=== PATIENT | female | born 1940 | race Caucasian/White ===

== ENCOUNTER 2019-08-18 10:30 | Outpatient (RCR) | payer MEDICARE, OTHER, SELFPAY ==
--- NOTE | 2019-07-13 17:24 | ST.OPIE ---
Visit Care Team Role Provider Type Walter Duarte MD Primary Care Provider Non-Staff Specialty: Family Practice Address: [address] [place] [address], [address] Email: Wiliam Molina MD Attending Provider Physician Referring Provider Specialty: Ear, Nose, Throat Address: [address] [place] [address], [address] Email: [email or web address] Speech-Language Pathology Initial Evaluation DIRECTOR TALENT Clinical Swallow Evaluation Start: 07/13/19 12:26 Freq: Status: Active Protocol: Document 07/13/19 12:26 VINNY (Rec: 07/13/19 12:50 VINNY [email or web address]) Clinical Swallow Evaluation Session Time Visit Start Time 12:30 Visit Stop Time 13:30 Total Visit Minutes 60 Visit Information Plan of Care Dates 07/13/19-10/04/19 Insurance Information Medicare Referral Referring Physician Dr. Wiliam Molina Reason for Referral Dysphagia Setting Assessment Location Outpatient Care Visit Type Note Type Initial Evaluation Next Note Type Next Note Type Treatment Note Patient Information Identification Type Name,ID Card History This 78-yr-old female, who goes by Gabe, has an extensive medical history including 3 cervical spine surgeries in 1979, 2013, and 2018. The 1979 surgery was successful in relieving the pt 's symptoms. In 2013, a bone spur was discovered on the pt' s cervical spine and surgery was unsuccessful in treating it. By 2018, the spur had grown and posterior cervical surgery was attempted at [facility]. However, during initial prep stages for surgery, the spur punctured the spinal cord resulting in multiple physical complications requiring extensive hospitalization and rehabilitation. Surgical intervention was again attempted in November 2018, but from anterior approach and lasting 4 hours during which time the pt was intubated. She experienced severe swallow difficulties and aspiration pneumonia post surgery, failed 2 MBSS evaluations (silent aspiration), and required PEG tube placement for nutrition and hydration. After a 47-day hospital stay, the pt returned home with Home Health. She received dysphagia treatment from DIRECTOR TALENT Ela Flores and was able to return to oral intake of soft foods and thin liquids . The pt passed an MBSS evaluation in Mar 2019, which noted deep penetration but no aspiration. Residue was noted particularly in left pyriform sinus and was benefited by head turn to left with chin tuck. The pt was cleared for oral consumption, and the PEG tube was removed 2 wks later. She has had no pneumonia since her hospital stay. The pt presents now for outpatient dysphagia therapy in hopes to continue to improve swallow function and safety for a more advanced diet. She experiences sticking of food in her throat, which requires frequent coughing to expel. This makes her uncomfortable eating in public and raises her concerns for possible choking and/or aspiration. PMHx is also significant for depression for which she sees Dr. 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 This successfully stopped the seizures. Subjective Observations The pt arrived on time and provided case history supplemental to medical records. She reported inconsistent use of compensatory strategies and compliance with swallow exercises. She stated she sometimes eats too fast. She requires applesauce to consume pills and has experienced sticking and dissolving of pills in her throat without use of a carrier. She questioned the purpose of swallow exercises and expressed doubt of their benefit. The pt did provide verbal permission for this clinician to speak with her previous Home Health DIRECTOR TALENT, which was done following the evaluation. Evaluation Liquids Trialed Thin Solids Trialed Puree,Dysphagia Mechanical Administration Type Cup Single Sip,Cup Consecutive Sips,Self-Feeding Oral Impairment WFL Oral Strategies Controlled Bite/Sip Size Oral Phase Comments Oral Peripheral Exam: All structures were symmetrical and WNL of strength, coordination and ROM. Hyolaryngeal elevation and excursion appear to be WFL via palpation. Pt has extensive scarring and bulk at anterior neck from surgeries. Suspect internal scar tissue as well that may impact laryngeal movement and possibly airway closure. Oral Phase: WFL. The pt explained that she takes care and time to position boluses at center front of tongue blade and then shift to back of tongue prior to swallow onset to improve bolus control . Swallow trigger appears to be timely. No abnormal oral residue was present. Pharyngeal Impairment Moderately Impaired Pharyngeal Strategies Sitting Upright (90 deg),Turn Head Left,Chin Tuck,Double Swallow,Effortful Swallow, Small Bites and Sips Pharyngeal Phase Comments Without use of compensatory strategies, pt required 3 swallows to clear single cup sip of water. With use of strategies, reduced to 2 swallows. Pt reported sticking sensation with solids, which cleared with subsequent swallow. Findings Dysphagia Type Moderate-Severe Pharyngeal Dysphagia Rehabilitation Potential Good Impressions Based on most recent MBSS reports and today's clinical bedside swallow evaluation, the pt presents with moderate to severe pharyngeal dysphagia characterized by reduced airway closure and pharyngeal residue requiring multiple swallows to clear. The pt benefits from head turn to left with chin tuck. Based on reports from the pt and from her previous DIRECTOR TALENT, the pt has been inconsistent with clinical recommendations and HEP. Outpatient skilled intervention is medically necessary to improve the pt's swallow function and safety in order to advance her diet and reduce risks of aspiration and choking. Recommend therapy target pt education, swallow exercises, compensatory swallow strategies, and ongoing assessment with oral trials. The pt was in agreement with this clinician's instructions to resume swallow exercises and precautions as prescribed. Diet Recommendations Liquids Order Thin Diet Order Dysphagia Mechanical Medication Recommendations Whole in Carrier Additional Dietary Needs Single Sips Aspiration Precautions Recommended Precautions Upright at 90 Degrees,Small Bites/Sips,Chin Tuck,Effortful Swallow,Double Swallow,Left Head Turn Treatment Plan Placement Recommendations after Home Discharge Appropriate for Therapy Yes Therapy Recommendations Pt education, swallow exercises, compensatory swallow strategies, and ongoing assessment with oral trials. Dysphagia Goals To reduce risk of aspiration, advance diet, and increase pt comfort and confidence with oral consumption, the pt will: 1. Independently perform exercises to improve strength, coordination, and ROM of swallow musculature; 2. Independently use compensatory swallow strategies in 90% of opportunities; 3. Comply with general aspiration precautions in 90% of opportunities. 4. The pt will tolerate mechanical soft textures and thin liquids without overt s/ sx of aspiration. DIRECTOR TALENT Follow Up 1x/wk for 8 wks
--- NOTE | 2019-07-26 11:30 | ST.IPDYTX ---
Visit Care Team Role Provider Type Walter Duarte MD Primary Care Provider Non-Staff Specialty: [facility] Address: [address] [place] [address], [address] Email: Wiliam Molina MD Attending Provider Physician Referring Provider Specialty: Ear, Nose, Throat Address: [address] [place] [address], [address] Email: [email or web address] MILL OPERATOR Dysphagia Treatment FORMING MILL OPERATOR Dysphagia Treatment Start: 07/26/19 10:26 Freq: Status: Active Protocol: Document 07/26/19 10:26 VINNY (Rec: 07/26/19 10:27 VINNY [email or web address]) Dysphagia Treatment Session Time Visit Start Time 09:45 Visit Stop Time 10:20 Total Visit Minutes 35 Visit Information Visit Number 06/11 Plan of Care Dates 07/13/19-10/04/19 Insurance Information Medicare Setting Assessment Location Outpatient Care Visit Type Note Type Treatment Note Next Note Type Next Note Type Treatment Note Patient Information Identification Type Name,ID Card Subjective Observations Pt arrived 15 min late, stating she got turned around coming to the clinic. She was apologetic. Medical records received including MBS and dysphagia treatment reports. Treatment Treatment Activities Reviewed past medical records with pt. Some confusion appears within 03/23/19 MBS report whether pt aspriated or not. This FORMING MILL OPERATOR will consult documentation further. Educated pt on purpose of compensatory strategy of head turn to left with chin tuck. Information provided orally and with diagram. Pt verbalized understanding. Initiated training of swallow exercises including laryngeal elevation and tongue base strengthening. CTAR is held pending results of recent CT scan to ensure exercise is not contraindicated d/t cervical spine surgery and hardware. Pt returned demonstration of all exercises and verbalized agreement. All questions were answered. Assessment Patient Response to Treatment Good Rehab Potential Fair Assessment of Improvement Pt demonstrated good understanding of all information provided and was able to perform all exercises. She inquired whether additional MBS will be ordered . Recommend completion of HEP for 6-8 wks prior to f/u MBS. Pt in understanding and agreement. Diet Recommendations Recommendations Continue Current Diet Liquids Order Thin Diet Order Dysphagia Mechanical Medication Recommendations Whole in Carrier Additional Dietary Needs Chopped Food Aspiration Precautions Recommended Precautions Upright at 90 Degrees,Small Bites/Sips,Chin Tuck,Effortful Swallow,Double Swallow,Left Head Turn Treatment Plan Placement Recommendation after Discharge Home Appropriate for Continued Therapy Yes Therapy Recommendations Pt education, swallow exercises, compensatory swallow strategies, and ongoing assessment with oral trials. Dysphagia Goals To reduce risk of aspiration, advance diet, and increase pt comfort and confidence with oral consumption, the pt will: 1. Independently perform exercises to improve strength, coordination, and ROM of swallow musculature; 2. Independently use compensatory swallow strategies in 90% of opportunities; 3. Comply with general aspiration precautions in 90% of opportunities. 4. The pt will tolerate mechanical soft textures and thin liquids without overt s/ sx of aspiration. Follow Up Plan F/U MBSS after course of treatment
--- NOTE | 2019-08-09 16:24 | ST.IPDYTX ---
Visit Care Team Role Provider Type Walter Duarte MD Primary Care Provider Non-Staff Specialty: Family Practice Address: [address] [place], [address] Email: Wiliam Molina MD Attending Provider Physician Referring Provider Specialty: Ear, Nose, Throat Address: [address] [place] [address], [address] Email: [email or web address] Dysphagia Treatment SERVICE CLERK Dysphagia Treatment Start: 07/26/19 10:26 Freq: Status: Active Protocol: Document 08/09/19 16:22 VINNY (Rec: 08/09/19 16:24 VINNY [email or web address]) Dysphagia Treatment Visit Information Plan of Care Dates 07/13/19-10/04/19 Insurance Information Medicare Setting Assessment Location Outpatient Care Patient Information Subjective Observations Pt did not show for her appt today. SERVICE CLERK spoke to her by phone. She had it in calendar for tomorrow but is also ill today so would not have been able to attend. She did receive IH reminder phone call , which went to and pt did not listen to it. She apologized. Informed her of next scheduled appt and encouraged her to call to cancel if she was still not feeling well. Pt agreed. Treatment Plan Placement Recommendation after Discharge Home Appropriate for Continued Therapy Yes Therapy Recommendations Pt education, swallow exercises, compensatory swallow strategies, and ongoing assessment with oral trials.
--- NOTE | 2019-08-18 14:59 | ST.IPDYTX ---
Visit Care Team Role Provider Type Walter Duarte MD Primary Care Provider Non-Staff Specialty: Family Practice Address: [address] [place] [address], [address] Email: Wiliam Molina MD Attending Provider Physician Referring Provider Specialty: Ear, Nose, Throat Address: [address] [place] [address], [address] Email: [email or web address] Dysphagia Treatment HAND POTTER Dysphagia Treatment Start: 07/26/19 10:26 Freq: Status: Active Protocol: Document 08/18/19 14:31 VINNY (Rec: 08/18/19 14:58 VINNY [email or web address]) Dysphagia Treatment Session Time Visit Start Time 10:30 Visit Stop Time 11:15 Total Visit Minutes 45 Visit Information Visit Number 07/12 Plan of Care Dates 07/13/19-10/04/19 Insurance Information Medicare Setting Assessment Location Outpatient Care Visit Type Note Type Treatment Note Next Note Type Next Note Type Treatment Note Patient Information Identification Type Name,ID Card Subjective Observations Pt arrived on time. Reported moderate compliance with HEP and improvement in swallow ability and safety. I don't feel at all unsafe eating. She reported near absence of coughing with intake but continues with pharyngeal residue, which she manages with hard cough at end of meals to expel. This is successful. Pt also reported having has respiratory congestion last week. She was evaluated by her MD, who diagnosed sinus infection and not COVID-19 or pneumonia. Treatment Liquids Trialed Thin Solids Trialed Puree,Regular Administration Type Cup Single Sip,Cup Consecutive Sips,Self-Feeding Oral Strategies Controlled Bite/Sip Size Pharyngeal Strategies Sitting Upright (90 deg), Effortful Swallow,Small Bites and Sips Treatment Activities Pt reported HEP routine and current symptoms. Skilled education and feedback provided. Education also provided RE sypmtoms of COVID- 19 vs pnuemonia as related to aspiration. The pt was strongly encouraged to seek medical evaluation if she developed cough, cold, SOB, and/or fever and to request chest x-ray as part of differential diagnoses and evaluation of possible development of aspiration pneumonia. She agreed to this. Discussed POC in response to current COVID-19 guidelines per CDC, state, local and hospital policies. Agreed to hold therapy for now for pt safety, as well as safety of the general public, and to follow up again as soon as is safe. Modified HEP tasks to include Tatianna maneuver. Pt was familiar with exercise from previous therapy. Education on purpose/goal of exercise provided with oral and animated video information and demonstration. Pt returned demonstration with good form and verbalized understanding. Oral Trials: Pudding, dry getachew cracker, thin liquid from cup in single and consecutive sips. Oral Phase: WNL. Pt demonstrated appropriate bite/ sip sizes and mastication. Pharyngeal Phase: No overt s/ sx of aspiration observed. Pt maintained clear voice throughout. At end of trials, pt instructed to cough hard into tissue, which she did and produced residue of getachew cracker, indicating pharyngeal residue that does not fully clear during oral intake. Pt instructed to continue with current diet and aspiration precautions, including liquid wash after solids and hard cough at end of intake to manage pharyngeal residue. Pt instructed to continue with HEP, increasing consistency to daily practice as able in balance with other life tasks and medical conditions. Assessment Patient Response to Treatment Good Rehab Potential Fair Assessment of Improvement Pt appears to be doing well with airway protection with oral intake and is maintaining an oral diet without weight loss. She continues with greater than normal pharyngeal residue with intake of solids , which she is able to expel with cough at the end of meals /snacks. Anticipate this will improve as the pt becomes more consistent with HEP. Tatianna maneuver was added to HEP tasks and importance of tongue base exercises was stressed to address pharyngeal residue. The pt verbalized understanding and an intention to increase daily compliance with all prescribed exercises. We discussed the importance of balance between exercise and other aspects of life, including mental health. I appreciate the pt's statements that exercises sometimes act as frequent reminders of deficits, which can add to depression. The pt was receptive to encouragement of reframing thoughts to consider exercise as an opportunity to assert control of the condition and improve it for better quality of life. Diet Recommendations Recommendations Continue Current Diet Liquids Order Thin Diet Order Dysphagia Mechanical Medication Recommendations Whole in Carrier Additional Dietary Needs Chopped Food Aspiration Precautions Recommended Precautions Upright at 90 Degrees,Small Bites/Sips,Chin Tuck,Effortful Swallow,Double Swallow,Left Head Turn Treatment Plan Placement Recommendation after Discharge Home Appropriate for Continued Therapy Yes: Resume after COVID-19 outbreak resolved Therapy Recommendations Pt education, swallow exercises, compensatory swallow strategies, and ongoing assessment with oral trials. Dysphagia Goals To reduce risk of aspiration, advance diet, and increase pt comfort and confidence with oral consumption, the pt will: 1. Independently perform exercises to improve strength, coordination, and ROM of swallow musculature; 2. Independently use compensatory swallow strategies in 90% of opportunities; 3. Comply with general aspiration precautions in 90% of opportunities. 4. The pt will tolerate mechanical soft textures and thin liquids without overt s/ sx of aspiration. Follow Up Plan Hold per COVID-19 protocol; Cont HEP; F/U MBSS after course of treatment
--- NOTE | 2019-12-08 08:56 | ST.IPDYTX ---
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 Treatment suspended d/t COVID- 19 crisis. Pt declined resumption of therapy upon clinic reopening, stating she was not comfortable d/t ongoing COVID-19 risks and agreed to discharge at this time. She understood that new MD orders would be required for future therapy, if needed or desired. Diet Recommendations Liquids Order Thin Diet Order Dysphagia Mechanical Medication Recommendations Whole in Carrier Additional Dietary Needs Chopped Food Aspiration Precautions Recommended Precautions Upright at 90 Degrees,Small Bites/Sips,Chin Tuck,Effortful Swallow,Double Swallow,Left Head Turn Treatment Plan Placement Recommendation after Discharge Home Therapy Recommendations Pt education, swallow exercises, compensatory swallow strategies, and ongoing assessment with oral trials. Dysphagia Goals To reduce risk of aspiration, advance diet, and increase pt comfort and confidence with oral consumption, the pt will: 1. Independently perform exercises to improve strength, coordination, and ROM of swallow musculature; 2. Independently use compensatory swallow strategies in 90% of opportunities; 3. Comply with general aspiration precautions in 90% of opportunities. 4. The pt will tolerate mechanical soft textures and thin liquids without overt s/ sx of aspiration.
== END 2019-12-10 08:15 ==
LOC: SP 10:30
PROVIDERS: PCP Family Medicine; Referring Provider Otolaryngology; Visit Provider Otolaryngology
DX: R13.19 Other dysphagia (principal)
CPT/HCPCS: 92526; 92610

== ENCOUNTER 2020-04-17 12:17 | Outpatient (RCR) | payer MEDICARE, OTHER, SELFPAY ==
--- NOTE | 2020-04-17 16:38 | ST.OPIE ---
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 Wiliam Molina Reason for Referral Dysphagia Setting Assessment Location Outpatient Care Visit Type Note Type Initial evaluation Next Note Type Next Note Type Treatment Note Patient Information Identification Type Name,ID Card History The pt is a 79-yr-old female who goes by Gabe and is familiar to this clinician from dysphagia therapy provided earlier in the year. That course of therapy was discontinued d/t COVID-19 pandemic risks. The pt returns today with ongoing complaints of foods and liquids sticking in her throat. The pt has a history of cervical spinal stenosis s/p C4 corpectomy, C3 -C5 cage plate resection in 2019. Following this procedure, she experienced severe dysphagia requiring tube feeding. Dysphagia therapy was provided, and MBSS administered 03/23/19 revealed no oral and mild-moderate pharyngeal dysphagia characterized by minimal epiglottic retroflexion, partial closure of laryngeal vestibule and impaired midpharyngeal peristalsis, which results in mild-moderate pharyngeal residue of solids and liquids. No aspiration observed, with one instance of very mild laryngeal penetration with thin liquids originating from pharyngeal residue. Able to clear penetrated liquid with throat clear and extra dry swallow. The pt reported that head turn to the left with chin tuck was originally helpful but no longer so. 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 She also has a hx of depression and is under the care of Dr. Dayday Medellin. Subjective Observations The pt arrived on time and provided updated case history, included above. Objective Assessment Mental Status Alert,Responsive,Cooperative Oral Integrity WFL,Excessive saliva/Drooling Dentition Within normal limits,Dentures or partials present,Adequate denture or partial fitting Lip Function Within normal limits Observation of Lips at Rest Right sided weakness/Drooping Pucker Within normal limits Lip Retraction Within normal limits Alternating Pucker/Lip Retraction Within normal limits Tongue Function Within normal limits Observations of Tongue at Rest Within normal limits Tongue Protrusion Within normal limits Tongue Retraction Within normal limits Tongue Lateralization Within normal limits Jaw Function Within normal limits Observations of Jaw at Rest Within normal limits Jaw Opening Within normal limits Jaw Closing Within normal limits Jaw Lateralization Within normal limits Jaw Protrusion Within normal limits Jaw Retraction Within normal limits Hard/Soft Palate Function Within normal limits Observations of Hard/Soft Palate Within normal limits Nasality Within normal limits Phonation Within normal limits Respiratory Sufficiency Within normal limits Comment The pt reported occasional mild saliva buildup with occ drooling at right corner of mouth; buildup was visible to the clinician. Minimal right side weakness/droop observed at right corner of mouth and eyelid. Food and Liquid Trials Position During Assessment Upright (90 degrees) Liquids Trialed Thin Solids Trialed Puree,Mechanical Soft Administration Type Cup consecutive sips,Straw, Self-feeding Oral Impairment Within normal limits Pharyngeal Impairment Moderately impaired Pharyngeal Phase Comments No overt s/sx of aspiration were observed with all trials. The pt c/o sticking sensation with all trials including liquids and solids. During consumption of diced peaches, the pt swallowed once, coughed up food particles, repeated that pattern, and swallowed completely on third attempt. She stated that this was her normal process when eating solids that required mastication. Fatigue/Endurance Endurance WNL Strategies Attempted Chin tuck,Head rotation, Effortful swallow Response/Comments No positive effect from strategies. Findings Swallowing Function Pharyngeal phase dysphgia Severity of Swallow Impairment Mildly-moderately impaired Contributing Factors to Swallow Excessive pharyngeal residue Impairment Prognosis Fair Based on Duration of symptoms/severity, Other (comment) Comment Suspect presence of cervical spine cage impacts pharyngeal clearance with possible interference of epiglottic inversion. If so, prognosis is poor. However, if cage does not interfere, prognosis is good and improvement is expected with exercise to improve muscular function. Instrumental evaluation is required for more complete assessment. Impact on Safety and Functioning Risk for aspiration Recommendations Instrumental Assessment Yes Swallowing Treatment Yes Frequency 6x Duration over 2-3 mos Recommended Solids Chopped Recommended Liquids Thin Safety Precautions/Swallowing Reduce distractions,Remain Recommendations upright (90 degrees) during all oral intake,Upright position at least 30 minutes after meals,Small bites and sips when eating,Slow rate; swallow between bites,Multiple swallows,Alternate liquids and solids Medication Recommendations Crushed in Carrier Discharge Recommendations Home,Outpatient therapy Education Patient/Caregiver Education Described results of evaluation,Patient expressed understanding of evaluation, Patient expressed agreement with goals & treatment plans, Patient expressed understanding of safety precautions,Patient expressed understanding of feeding recommendations Goals Short-term Goals 1. The pt will participate in MBSS for further evaluation of swallow function/safety and to guide POC. 2. The pt will employ safe swallow strategies to reduce risk of aspiration. 3. The pt will perform swallow exercises, if deemed appropriate after MBSS, to improve swallow efficiency and comfort with oral intake. Long-term Goals 1. The pt will tolerate least restrictive diet to meet her nutrition and hydration needs.
--- NOTE | 2020-10-04 16:03 | ST.OPDS ---
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 That course of therapy was discontinued d/t COVID-19 pandemic risks. The pt returns today with ongoing complaints of foods and liquids sticking in her throat . The pt has a history of cervical spinal stenosis s/p C4 corpectomy, C3-C5 cage plate resection in 2019. Following this procedure, she experienced severe dysphagia requiring tube feeding. Dysphagia therapy was provided , and MBSS administered revealed no oal and mild- moderate pharyngeal dysphagia characterized by minimal epiglottic retroflexion, partial closure of laryngeal vestibule and impaired midpharyngeal peristalsis, which results in mild-moderate pharyngeal residue of solids and liquids. No aspiration observed, with one instance of very mild laryngeal penetration with thin liquids originating from pharyngeal residue. Able to clear penetrated liquid with throat clear and extra dry swallow. The pt reported that head turn to the left with chin tuck was originally helpful but no longer so. 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 She also has a hx of depression and is under the care of Dr. Dayday Medellin. Subjective Observations/Patient Presentation The pt was last seen in outpatient clinic on 04/17/20. Since then, she was seen for MBSS on 09/13/20. New orders for dysphagia treatment were received from PCP. This course of treatment is discharged at this time in order to open a new course and POC. Chief Complaint(s) Swallowing Objective Short Term Goals 1. The pt will participate in MBSS for further evaluation of swallow function/safety and to guide POC. 2. The pt will employ safe swallow strategies to reduce risk of aspiration. 3. The pt will perform swallow exercises, if deemed appropriate after MBSS, to improve swallow efficiency and comfort with oral intake. Fdc Goals 1. The pt will tolerate least restrictive diet to meet her nutrition and hydration needs. Assessment Rehab Potential Fair Plan Therapy Recommendations Discharge from Speech Therapy Comment New course of treatment to be initiated under new orders.
== END 2020-10-05 08:51 | disposition home or self-care (01) ==
LOC: SP 12:17
PROVIDERS: PCP Internal Medicine; Referring Provider Otolaryngology; Visit Provider Otolaryngology
DX: R13.10 Dysphagia, unspecified (principal)
CPT/HCPCS: 92610

== ENCOUNTER → 2020-09-13 12:53 | Outpatient (CLI) | payer MEDICARE, OTHER, SELFPAY ==
--- NOTE | 2020-09-13 | DI.RAD.S_ITS ---
PROCEDURE: FL BARIUM SWALLOW W SPEECH INDICATIONS: Dysphagia, unspecified COMPARISON: None. TECHNIQUE: Examination was conducted in conjunction with speech pathology per standard protocol. In the lateral projection, filming was performed of the patient swallowing. AP projection filming may also be performed with patient swallowing. COMPARISON: FINDINGS: Function: The oral preparatory phase appears normal, with proper containment. The subsequent oral propulsive phase, pharyngeal phase, and esophageal phase of swallowing also appear normal with all proffered substances. No laryngotracheal penetration or aspiration. Pathologic pooling of all proffered substances noted in the vallecula and right piriform sinus. Patient is unable to swallow a 13 millimeter barium pill sequestration in the vallecula. Morphology: No cricopharyngeal bar is identified. No cervical esophageal webs. No Zenker's diverticulum. No strictures. Postsurgical changes compatible with C5 ACDF. Degenerative disc changes with anterior endplate osteophytosis at the C7-T1 level causes contouring of the posterior margin of the cervical esophagus. 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 Dictated by: Trinity Srivastava MD, PhD on 09/13/2020 at 16:54 Approved by: Trinity Srivastava MD, PhD on 09/13/2020 at 16:58
--- NOTE | 2020-09-13 17:10 | ST.SWALLOW ---
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 Guillaume Cortés Reason for Referral Dysphagia Setting Setting Outpatient Care Patient Information Patient History The pt is a 79-yr-old female who goes by Gabe and is familiar to this clinician from prior outpatient dysphagia therapy, which was discontinued d/t COVID-19 pandemic risks. The pt returns today with ongoing complaints of foods and liquids sticking in her throat. The pt has a history of cervical spinal stenosis s/p C4 corpectomy, C3 -C5 cage plate resection in 2019. Following this procedure , she experienced severe dysphagia requiring tube feeding. Dysphagia therapy was provided, and MBSS administered 03/23/19 revealed no oral and mild-moderate pharyngeal dysphagia characterized by minimal epiglottic retroflexion, partial closure of laryngeal vestibule and impaired midpharyngeal peristalsis, which results in mild-moderate pharyngeal residue of solids and liquids. No aspiration observed, with one instance of very mild laryngeal penetration with thin liquids originating from pharyngeal residue. Able to clear penetrated liquid with throat clear and extra dry swallow. The pt reported that head turn to the left with chin tuck was originally helpful but no longer so. 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 She also has a hx of depression and is under the care of Dr. Dayday Medellin. Subjective Observations The pt arrived on time and provided updated case history. Patient Positioning Position View A/P Imaging Lateral View Textures Administered Trials Presented Thin Liquid via Spoon,Thin Liquid via Cup,[place]ural [place]reat Liquid via Spoon,Rural [place]reat Liquid via Cup,Honey Liquid via Spoon, Dysphagia Blenderized Textures ,Regular Textures Oral Phase Source: MBSIMP (TM) (C) Bolus Specific Scoring Grid Nasal Regurgitation No Pharyngeal Phase Source: MBSIMP (TM) (C) Bolus Specific Scoring Grid Delayed Initiation of Pharyngeal Swallow No Soft Palate Elevation No Impairment (WNL) Tongue Base Strength/Range of Motion No Impairment (WNL) Residue Along the Tongue Base Yes Clearance of Residue Along Tongue Base WFL Laryngeal Elevation No Impairment (WNL) Anterior Hyoid Movement No Impairment (WNL) Epiglottic Range of Motion Moderate Impairment Vallecular Residue Yes Clearance of Vallecular Residue Severe Impairment Laryngeal Vestibular Closure Mild Impairment Pharyngeal Stripping Wave Moderate Impairment Posterior Pharyngeal Wall Residue Yes Clearance of Posterior Pharyngeal Wall Moderate Impairment Residue Upper Esophageal Sphincter Opening Severe Impairment Residue in the Pyriform Sinuses Yes Clearance of Residue in the Pyriform Severe Impairment Sinuses Pharyngoesophageal Backflow Observed No Additional Pharyngeal Phase Observations The presence of a cervical cage (C3-C5) prevents complete epiglottic inversion ( horizontal at best) and limits extension and duration of UES opening, resulting in significant residue in vallecula and pyriform sinuses , which does not clear despite multiple swallows by the pt. This is further complicated by degenerative disc changes with anterior endplate osteophytosis at the C7-T1 level [which] causes contouring of the posterior margin of the cervical esophagus (see Radiologist report) and slows bolus flow through UES and proximal esophagus. No complete bolus or residue clearance was observed throughout the study. Increased bolus bulk (i.e., pudding and cookie) inconsistently assisted in clearance of pyriform sinuses; however, bulk increased residue at vallecula, prompting the pt to return the bolus from vallecula to oral cavity and reswallow until residue was minimal. Flash penetration (PAS 2) of pharyngeal residue was noted x2 following intake of thin liquid. No aspiration was observed. A/P View Textures Administered Trials Presented Barium Tablet A/P View Observations Pharyngeal Contraction Mild Impairment Residue Observed Pyriform Sinus Right Additional Observations Pt unable to pass barium tablet beyond vallecula, requiring oral expulsion. Pyriform sinus residue greater at right side than left. Clinical Impressions Dysphagia Type Moderate-severe pharyngeal dysphagia Findings The pt presents with moderate- severe pharyngeal dysphagia secondary to presence of cervical cage (C3-C5) which prevents complete epiglottic inversion and restricts extension and duration of UES opening, resulting in significant pharyngeal residue , particularly at vallecula and right pyriform sinus, and increasing the pt's risk of aspiration. Additionally, anterior endplate osteophytosis at the C7-T1 level causes contouring of the posterior margin of the cervical esophagus and further reducing bolus flow and contributing to pharyngeal residue. Reduced contraction of pharyngeal constrictors is present around the cage; otherwise, movement of all other pharyngeal structures appear to be WFL, including airway protection, but limited by cage interference. Therefore, dysphagia therapy is not likely to yield extensive benefit. Recommend the pt be seen by Developing Machine Operator (Dr. Roper at [facility], recommended) for assessment of pharyngoesophageal function and treatment as indicated to improve bolus flow through UES and proximal esophagus. Rehabilitation Potential Fair Patient Appropriate for Therapy Pending assessment/treatment of UES Recommendations Diet Liquids Order Thin Diet Order Regular Medication Recommendation Crushed in Carrier Additional Dietary Needs Chopped Food Aspiration Precautions Recommended Precautions Upright at 90 Degrees, Alternate Liquids/Solids,Small Bites/Sips Treatment Plan Therapy Recommendations Other Additional Therapy Recommendations MBS f/u x1; Dysphagia tx may be warranted after ENT/GI treatment Recommended Referrals ENT Consult Additional Recommended Referrals UES dilation? Recommend Dr. Roper at [facility]. Compensatory Strategies Recommendations Sitting Upright (90 deg), Double Swallow,Small Bites and Sips,Alternate Liquids/Solids Additional Compensatory Strategies Small bites/sips, solids Recommended chewed very well and followed by liquid Short Term Goals Pt to follow up with AUTO CLEANER x1 for review of MBS results and discussion of recommendations. Associate Civil Engineer Goals Pt will tolerate least restrictive diet to meet nutrition and hydration needs.
== END ==
PROVIDERS: PCP Internal Medicine; Referring Provider Internal Medicine; Visit Provider Internal Medicine
DX: R13.10 Dysphagia, unspecified (principal)
CPT/HCPCS: 74230; 92611

== ENCOUNTER 2020-11-28 10:30 | Outpatient (RCR) | payer MEDICARE, OTHER, SELFPAY ==
--- NOTE | 2020-10-04 16:41 | ST.OPIE ---
Visit Care Team Role Provider Type Guillaume Cortés MD Attending Provider Non-Staff Primary Care Provider Referring Provider Specialty: Internal Medicine Address: [address] [place] [address] [address], [place], [address] Email: Speech-Language Pathology Initial Evaluation CONTENT DIRECTOR Clinical Swallow Evaluation Start: 10/04/20 15:54 Freq: Status: Active Protocol: Document 10/04/20 15:54 VINNY (Rec: 10/04/20 16:36 VINNY [email or web address]) Clinical Swallow Evaluation Session Time Visit Start Time 10:30 Visit Stop Time 11:30 Total Visit Minutes 60 Visit Information Visit Number Initial Evaluation Plan of Care Dates 10/04/20 - 01/04/21 Insurance Information Medicare Referral Referring Provider Dr. Guillaume Cortés Reason for Referral Pharyngeal Dysphagia Setting Assessment Location Outpatient Care Visit Type Note Type Initial evaluation Next Note Type Next Note Type Treatment Note Patient Information History The pt is a 80-yr-old female who goes by Gabe and is familiar to this clinician from previous dysphagia therapy provided last year. The pt has a history of cervical spinal stenosis s/p C4 corpectomy, C3-C5 cage plate resection in 2019. Following this procedure, she experienced severe dysphagia requiring tube feeding. Dysphagia therapy was provided , and MBSS administered revealed no oral and mild- moderate pharyngeal dysphagia characterized by minimal epiglottic retroflexion, partial closure of laryngeal vestibule and impaired midpharyngeal peristalsis, which results in mild-moderate pharyngeal residue of solids and liquids. No aspiration observed, with one instance of very mild laryngeal penetration with thin liquids originating from pharyngeal residue. Able to clear penetrated liquid with throat clear and extra dry swallow. The pt reported that head turn to the left with chin tuck was originally helpful but no longer so. On 09/13/20, the pt underwent MBSS with this CONTENT DIRECTOR. The study revealed moderate-severe pharyngeal dysphagia secondary to presence of a cervical cage (C3-C%) which prevents complete epiglottic inversion and restricts distension and duration of UES opening. This results in significant pharyngeal residue, particularly at the right pyriform sinus and to a lesser degree at the vallecula. Additionally, an osteophyte at C7-T1 presented additional constriction below UES, trapping trace amounts of contrast and impeding bolus flow. It was recommended the pt consult with Dr. Roper at for assessment and possible treatment of UES opening. The pt is scheduled to see Dr. Roper on 10/23/20. 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 She also has a hx of depression and is under the care of Dr. Dayday Medellin. Subjective Observations The pt arrived on time. No new complaints regarding swallowing. She was recently seen by Urology and recommended a very strict diet to reduce acidity of urine. The pt was unhappy about this as this further limits an already very strict diet d/t dysphagia symptoms. She informed she will be seen by Dr. Roper on 10/[address] Bibiana Roper has received a copy of the MBS video, but not CONTENT DIRECTOR' s written report. CONTENT DIRECTOR's and Radiologist's reports were faxed to Dr. Roper at the end of the session. Objective Assessment Mental Status Alert,Responsive,Cooperative Food and Liquid Trials Oral Phase Comments WNL Pharyngeal Phase Comments Moderate-Severe Impairment based on recent MBSS findings. Fatigue/Endurance Mild fatigue Comment No oral trials were administered during today's session. Clinical evaluation is based on MBSS findings. These findings, as well as the MBSS video, were reviewed with the pt. Discussed what to expect at the pt's appt with Dr. Roper. Pt was educated on possible treatments including Botox injection to UES to assist with pharyngeal clearance. 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 Questions were answered to the best of the clinician's ability. Recommended the pt discuss these concerns with Dr. Roper , including possible impact of UES treatment, if provided, on GERD symptoms. The pt was also educated on potential targets and limitations of dysphagia therapy. She expressed a desire for exercises to attempt to improve performance of pharyngeal and laryngeal musculature. CONTENT DIRECTOR is agreeable to this and trained pt in [place], CTAR, tongue base strengthening, and Marlon exercises. Pt performed as directed. She was instructed to discontinue CTAR exercises if it exacerbates right side facial, jaw or neck pain. Pt verbalized understanding and agreement. All instructions were provided in writing for home practice. Agreed to f/u after the pt's appt with Dr. Roper. Findings Swallowing Function Pharyngeal phase dysphagia Severity of Swallow Impairment Moderately-severely impaired Contributing Factors to Swallow Reduced laryngeal excursion, Impairment Impaired airway protection, Excessive pharyngeal residue Prognosis Fair Based on Cognitive status,History of aspiration/aspiration pneumonia,Comorbidities, Duration of symptoms/severity Impact on Safety and Functioning Risk for aspiration,Risk for inadequate nutrition/hydration Recommendations Instrumental Assessment No Swallowing Treatment Yes Frequency up to 8 visits Duration over 3 months Recommended Solids Chopped Recommended Liquids Thin Safety Precautions/Swallowing Reduce distractions,Remain Recommendations upright (90 degrees) during all oral intake,Upright position at least 30 minutes after meals,Small bites and sips when eating,Slow rate; swallow between bites,Multiple swallows Medication Recommendations Crushed in Carrier Education Patient/Caregiver Education Described results of evaluation,Patient expressed understanding of evaluation, Patient expressed agreement with goals & treatment plans, Patient expressed understanding of safety precautions,Patient expressed understanding of feeding recommendations,Patient requires further education/ training Goals Short-term Goals 1. The pt will complete exercises to increase strength , coordination and ROM of pharyngeal and laryngeal musculature to reduce pharyngeal residue and risk of aspiration. 2. The pt will follow safe swallow strategies independently to reduce risk of aspiration and promote adequate nutrition and hydration. Long-term Goals 1. The pt will tolerate least restrictive diet to meet her nutrition and hydration needs.
--- NOTE | 2020-10-25 16:58 | ST.IPDYTX ---
Visit Care Team Role Provider Type Guillaume Cortés MD Attending Provider Non-Staff Primary Care Provider Referring Provider Specialty: Internal Medicine Address: [facility] [address], [place], [address] Email: COMPUTER EQUIPMENT REPAIRER Dysphagia Treatment COMPUTER EQUIPMENT REPAIRER Dysphagia Treatment Start: 10/04/20 15:54 Freq: Status: Active Protocol: Document 10/25/20 13:37 VINNY (Rec: 10/25/20 14:29 VINNY [email or web address]) Dysphagia Treatment Session Time Visit Start Time 13:30 Visit Stop Time 14:15 Total Visit Minutes 45 Visit Information Visit Number 1 Plan of Care Dates 10/04/20 - 01/04/21 Insurance Information Medicare Setting Assessment Location Outpatient Care Visit Type Note Type Treatment Note Next Note Type Next Note Type Treatment Note Patient Information Subjective Observations Pt arrived on time. COMPUTER EQUIPMENT REPAIRER student present throughout session with pt's verbal permission. Pt saw Dr. Roper 2 days ago ( 10/23) and underwent laryngeal /pharyngeal scoping, possibly laryngoscopy, videostroboscopy and/or FEES. COMPUTER EQUIPMENT REPAIRER's understanding of the pt's report of this visit is that Dr. Roper thinks coughing is from irritation of food pooling in right pyriform sinus vs airway intrusion. He recommends manometry assessment of esophageal peristalsis for baseline (48 hrs reading) and to determine if Botox injections to UES and R) VF are viable treatment options. If Botox tx is not helpful, may consider cricopharyngeal myotomy. Dr. Roper recommended the pt to take 25 mg Lyrica to reduce pharyngeal aggravation. The pt had questions regarding these recommendations. Treatment Treatment Activities Addressed pt's extensive questions and provided detailed education regarding purposes and processes of Dr. Roper's recommendations in light of pt's current swallow function to assist the pt in making an informed decision. Assessment Patient Response to Treatment Good Rehab Potential Fair Assessment of Improvement Pt was initially undecided and asked COMPUTER EQUIPMENT REPAIRER, Am I overreacting to this and should just get over it and accept the way things are? I don't want to go through more procedures if they are not going to make things better. COMPUTER EQUIPMENT REPAIRER assured pt she was not overreacting. Informed that recommended procedures were necessary to determine the potential for benefit of more permanent treatment options. After education, the pt reported feeling better informed and more inclined to proceed with Dr. Roper's recommendations. Diet Recommendations Recommendations Continue Current Diet Liquids Order Thin Diet Order Dysphagia Mechanical Medication Recommendations Crushed in Carrier Additional Dietary Needs Chopped Food Aspiration Precautions Recommended Precautions Upright at 90 Degrees,Small Bites/Sips,Double Swallow Additional Precautions Chew well Treatment Plan Placement Recommendation after Discharge Home Appropriate for Continued Therapy Yes: Continue POC Therapy Recommendations Pt education, swallow exercises, compensatory swallow strategies, and ongoing assessment with oral trials. Dysphagia Goals 1. The pt will complete exercises to increase strength , coordination and ROM of pharyngeal and laryngeal musculature to reduce pharyngeal residue and risk of aspiration. 2. The pt will follow safe swallow strategies independently to reduce risk of aspiration and promote adequate nutrition and hydration. 3. The pt will tolerate least restrictive diet to meet nutrition and hydration needs.
--- NOTE | 2020-11-01 17:48 | ST.IPDYTX ---
Visit Care Team Role Provider Type Guillaume Cortés MD Attending Provider Non-Staff Primary Care Provider Referring Provider Specialty: Internal Medicine Address: [facility] [address], [place], [address] Email: LIGHT RAIL TRANSIT OPERATOR Dysphagia Treatment LIGHT RAIL TRANSIT OPERATOR Dysphagia Treatment Start: 10/04/20 15:54 Freq: Status: Active Protocol: Document 11/01/20 16:53 VINNY (Rec: 11/01/20 17:06 VINNY [email or web address]) Dysphagia Treatment Session Time Visit Start Time 13:30 Visit Stop Time 14:20 Total Visit Minutes 50 Visit Information Visit Number 2 Plan of Care Dates 10/04/20 - 01/04/21 Insurance Information Medicare Setting Assessment Location Outpatient Care Visit Type Note Type Treatment Note Next Note Type Next Note Type Treatment Note Patient Information Identification Type Name,ID Card Subjective Observations Prior to session, this LIGHT RAIL TRANSIT OPERATOR spoke with LIGHT RAIL TRANSIT OPERATOR Amparo Bucio [facility] who had administered MBSS. Ms. Bucio recommended outpatient therapy to target use of right head turn with chin tuck and hard swallow as compensatory strategy and to decrease laryngeal hypersensitivity that resulted during MBS in the pt's quick response to cough up and spit out pharyngeal residue. The pt was also encouraged by Dr. Roper to resume/continue Lyrica medication to further reduce hypersensitivity. Ms. Bucio stated the goal of Dr. Roper and the team is for the pt to benefit from skilled intervention with the hope of avoiding UES surgery. Pt arrived on time. LIGHT RAIL TRANSIT OPERATOR student present throughout session with pt's verbal permission. Treatment Liquids Trialed Thin Solids Trialed Mechanical Soft Administration Type Cup Single Sip,Cup Consecutive Sips,Self-Feeding Oral Strategies Upright at 90 degrees,Double Swallow,Controlled Bite/Sip Size Pharyngeal Strategies Sitting Upright (90 deg),Turn Head Right,Effortful Swallow, Small Bites and Sips Treatment Activities Educated pt in results of phone call with LIGHT RAIL TRANSIT OPERATOR. Pt verbalized understanding and was in agreement with recommendations. She noted that she infrequently coughs and spits out pharyngeal residue. This LIGHT RAIL TRANSIT OPERATOR affirmed presence of pharyngeal residue and educated on potential causes of increased laryngeal hypersensitivity and strategies to reduce such sensitivity and promote clearance with swallow. Written list/instructions of HEP tasks were provided to the pt, as the pt reported having lost her list. Trained pt in intra-oral pressure exercises via straw to increase hyolaryngeal elevation/ excursion and opening of UES. Pt performed appropriately, demonstrating understanding. Trained pt in compensatory swallow strategy. Pt consumed diced fruit and thin liquid using right head turn + chin tuck and effortful swallow with all but one sip of thin liquid, after which she independently acknowledged not using the strategy. She exhibited cough and need to return bolus to oral cavity after swallow x1 when she was also talking while consuming diced fruit. No other overt s/ sx of aspiration were noted and pt was able to completely swallow all other boluses with strategy and subsequent swallows as needed. Assessment Patient Response to Treatment Good Rehab Potential Fair Assessment of Improvement Pt reports doing well with oral intake. Was receptive to all education and training and in agreement with POC. Able to perform new swallow exercises and demonstrated near independent use of compensatory strategy, which was effective when pt refrained from talking while eating and when distractions were minimized. Diet Recommendations Recommendations Continue Current Diet Liquids Order Thin Diet Order Dysphagia Mechanical Medication Recommendations Crushed in Carrier Additional Dietary Needs Chopped Food Aspiration Precautions Recommended Precautions Upright at 90 Degrees,Small Bites/Sips,Double Swallow Additional Precautions Chew well Treatment Plan Placement Recommendation after Discharge Home Appropriate for Continued Therapy Yes: Continue POC Therapy Recommendations Pt education, swallow exercises, compensatory swallow strategies, and ongoing assessment with oral trials. Dysphagia Goals 1. The pt will complete exercises to increase strength , coordination and ROM of pharyngeal and laryngeal musculature to reduce pharyngeal residue and risk of aspiration. 2. The pt will follow safe swallow strategies independently to reduce risk of aspiration and promote adequate nutrition and hydration. 3. The pt will tolerate least restrictive diet to meet nutrition and hydration needs. Referrals/Other Recommended Referrals ENT Consult
--- NOTE | 2020-11-06 13:32 | ST.IPDYTX ---
Visit Care Team Role Provider Type Guillaume Cortés MD Attending Provider Non-Staff Primary Care Provider Referring Provider Specialty: Internal Medicine Address: [facility] [address], [place], [address] Email: RADIAL DRILL PRESS OPERATOR Dysphagia Treatment RADIAL DRILL PRESS OPERATOR Dysphagia Treatment Start: 10/04/20 15:54 Freq: Status: Active Protocol: Document 11/06/20 13:21 VINNY (Rec: 11/06/20 13:32 VINNY [email or web address]) Dysphagia Treatment Session Time Visit Start Time 12:30 Visit Stop Time 13:15 Total Visit Minutes 45 Visit Information Visit Number 3 Plan of Care Dates 10/04/20 - 01/04/21 Insurance Information Medicare Setting Assessment Location Outpatient Care Visit Type Note Type Treatment Note Next Note Type Next Note Type Treatment Note Patient Information Identification Type Name,ID Card Subjective Observations Pt arrived on time with questions related to manometry and UES injection and/or surgery recommended by Medicine and whether the procedures were worth the risk of potential negative side effects and simply the experience of additional medical procedures. The pt reported having successfully eaten out at a restaurant yesterday with friends. She consumed soft foods with use of swallow strategies. Moderate throat clearing and reswallow was necessary, but the pt was able to do this with minimal attention drawn to herself and was quite pleased, as this has long been a goal of hers. Treatment Treatment Activities No oral trials administered today. Education was provided to the pt to answer her questions and assist in the decision making process regarding above mentioned procedures. RADIAL DRILL PRESS OPERATOR was able to clarify to the pt that the majority of pharyngeal reside collects at right pyriform sinus vs vallecula. The pt expressed some confusion between these areas and purpose of procedures to address issues in the pharynx vs esophagus. All questions were answered, and the pt verbalized understanding by the end of the session. The pt was in agreement to proceed with recommended manometry, which is scheduled for November 21. Will f/u again with the pt after its completion. Assessment Patient Response to Treatment Good Rehab Potential Fair Assessment of Improvement The pt is managing swallow safety independently and successfully with use of swallow strategies. Was able to eat in public at a restaurant yesterday for the first time. She is able to consume most foods that she would like to and is accepting of food limitations. She was receptive to all education, which she reported was helpful in making her decision to proceed with manometry. By end of session, she demonstrated a much clearer understanding of targets of recommended procedures. Diet Recommendations Recommendations Continue Current Diet Liquids Order Thin Diet Order Dysphagia Mechanical Medication Recommendations Crushed in Carrier Additional Dietary Needs Chopped Food Aspiration Precautions Recommended Precautions Upright at 90 Degrees,Small Bites/Sips,Chin Tuck,Double Swallow,Right Head Turn Additional Precautions Chew well Treatment Plan Placement Recommendation after Discharge Home Appropriate for Continued Therapy Yes: Continue POC Therapy Recommendations Pt education, swallow exercises, compensatory swallow strategies, and ongoing assessment with oral trials. Dysphagia Goals 1. The pt will complete exercises to increase strength , coordination and ROM of pharyngeal and laryngeal musculature to reduce pharyngeal residue and risk of aspiration. 2. The pt will follow safe swallow strategies independently to reduce risk of aspiration and promote adequate nutrition and hydration. 3. The pt will tolerate least restrictive diet to meet nutrition and hydration needs. Follow Up Plan Hold per COVID-19 protocol; Cont HEP; F/U MBSS after course of treatment Referrals/Other Recommended Referrals ENT Consult
--- NOTE | 2020-11-28 17:46 | ST.IPDYTX ---
Visit Care Team Role Provider Type Guillaume Cortés MD Attending Provider Non-Staff Primary Care Provider Referring Provider Specialty: Internal Medicine Address: [facility] [address], [place], [address] Email: FLOSSER Dysphagia Treatment FLOSSER Dysphagia Treatment Start: 10/04/20 15:54 Freq: Status: Active Protocol: Document 11/28/20 17:26 VINNY (Rec: 11/28/20 17:33 VINNY [email or web address]) Dysphagia Treatment Session Time Visit Start Time 10:30 Visit Stop Time 11:15 Total Visit Minutes 45 Visit Information Visit Number 4 Plan of Care Dates 10/04/20 - 01/04/21 Insurance Information Medicare Setting Assessment Location Outpatient Care Visit Type Note Type Discharge Summary Next Note Type Next Note Type Treatment Note Patient Information Identification Type Name,ID Card Subjective Observations Pt arrived on time. She completed manometry and pH testing at with positive initial feedback on results, including good LES function and inconsistent UES function. The pt reported improved swallow since procedure, including ability to swallow large pills, which I haven't been able to do for 2 years. She had questions about whether esophageal dilation may be a treatment option vs Botox and/or surgical intervention. Treatment Treatment Activities The pt's questions were addressed and answered to FLOSSER' s best ability. Recommended pt schedule f/u appt at to review testing results and discuss if dilation may be an option. Skilled education and counseling was provided to the pt to assist in decision making around these options, progress to date with swallow safety, POC. Assessment Patient Response to Treatment Good Rehab Potential Good Assessment of Improvement The pt is managing swallow safety independently and successfully with use of swallow strategies. Is now able to eat in public at a restaurant, consumes most foods that she would like to and is accepting of food limitations. At this time, the pt will f/u with regarding potential treatment options ( Botox vs surgical incision vs dilatation). If performed, procedures are not expected to be scheduled before December. The pt will be discharged from outpatient therapy at this time, will continue with HEP and swallow safety strategies, and will return to therapy upon scheduling procedure(s) with . Recommend the pt return for baseline swallow assessment prior to UW interventions and f/u with ongoing assessment after procedures. The pt was in agreement with this plan. Diet Recommendations Recommendations Continue Current Diet Liquids Order Thin Diet Order Dysphagia Mechanical Medication Recommendations As Tolerated Additional Dietary Needs Chopped Food Aspiration Precautions Recommended Precautions Upright at 90 Degrees,Small Bites/Sips,Chin Tuck,Double Swallow,Right Head Turn Additional Precautions Chew well Treatment Plan Placement Recommendation after Discharge Home Appropriate for Continued Therapy No: Resume if/when pt participates in medical intervention () Dysphagia Goals ALL GOALS HAVE BEEN MET 1. The pt will complete exercises to increase strength , coordination and ROM of pharyngeal and laryngeal musculature to reduce pharyngeal residue and risk of aspiration. 2. The pt will follow safe swallow strategies independently to reduce risk of aspiration and promote adequate nutrition and hydration. 3. The pt will tolerate least restrictive diet to meet nutrition and hydration needs.
== END 2020-11-28 10:31 | disposition home or self-care (01) ==
LOC: SP 10:30
PROVIDERS: PCP Internal Medicine; Referring Provider Internal Medicine; Visit Provider Internal Medicine
DX: R13.10 Dysphagia, unspecified (principal)
CPT/HCPCS: 92526; 92610

== ENCOUNTER → 2021-06-29 08:47 | Outpatient (CLI) | payer MEDICARE, OTHER, SELFPAY ==
--- NOTE | 2021-06-29 | DI.NM.S_ITS ---
PROCEDURE: NM BONE SCAN WHOLE BODY RADIOPHARMACEUTICAL: 5 mCi Tc-99m MDP IV. INDICATIONS: Unilateral primary osteoarthritis, right knee TECHNIQUE: Delayed whole-body scintigrams were obtained approximately 3-4 hours after intravenous injection of radiotracer. Anterior and posterior views were acquired from vertex to feet. Additional left and right oblique views of the knees were obtained. COMPARISON: [facility], CR, XR KNEE 4+ VIEWS RIGHT, 06/06/2021, 12:12. [facility], CR, XR KNEE 3 VIEWS RIGHT, 01/12/2021, 11:20. FINDINGS: There is intense abnormal uptake in the medial femorotibial compartment of the right knee, consistent with osteoarthritis. Diffusely increased uptake in skull is noted, probably secondary to hyperostosis. No lesions are identified in skull, sternum, clavicles, scapulae, ribs, bony pelvis, and visualized shafts of the long bones. There is low level increased uptake in mid to lower thoracic spine and lower lumbar spine with distribution indistinguishable from degenerative disc and facet disease; early metastasis to spine could be obscured by degenerative changes. There are foci of increased periarticular activity involving shoulders and hips, compatible with degenerative/arthritic changes. IMPRESSION: 1. Intense abnormal uptake in the medial compartment of the right knee compatible with osteoarthritis. 2. Degenerative/arthritic changes in spine and several peripheral joints. Dictated by: Farhat Moya M.D. on 06/29/2021 at 14:57 Approved by: Farhat Moya M.D. on 06/29/2021 at 15:01
== END ==
PROVIDERS: PCP Internal Medicine; Referring Provider Orthopaedic Surgery; Visit Provider Orthopaedic Surgery
DX: M17.11 Unilateral primary osteoarthritis, right knee (principal); M47.816 Spondylosis without myelopathy or radiculopathy, lumbar region; M47.814 Spondylosis without myelopathy or radiculopathy, thoracic region
CPT/HCPCS: 78306; A9503

== ENCOUNTER 2021-08-14 14:30 | Outpatient (RCR) | payer MEDICARE, OTHER, SELFPAY ==
--- NOTE | 2021-07-24 14:30 | ST.OPIE ---
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 Guillaume Cortés Reason for Referral Dysphagia Setting Assessment Location Outpatient Care Visit Type Note Type Initial evaluation Next Note Type Next Note Type Treatment Note Patient Information Identification Type Name,ID Card History The pt is a 80-yr-old female familiar to this clinician from previous dysphagia therapy. 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 The pt reported findings of restriction of both upper and lower esophageal sphincters interfering with bolus passage . She is scheduled for endoscopy on 08/06/21 with possible dilation of sphincters. The pt has an extensive medical history including 3 cervical spine surgeries in 1979, 2013, and 2018. The latter was an anterior approach with cage placement from C3-C5. Following this surgery, the pt had significant dysphagia resulting in feeding tube placement, which continued for several months. In March 2019, the pt resumed oral consumption and has continued with a soft diet since with intermittent dysphagia therapy . MBSS on 09/13/20 revealed continued moderate-severel pharyngeal dysphagia characterized by incomplete epiglottic inversion and reduced extension and duration of UES opening, resulting in significant pharyngeal residue , particularly at right vallecula and pyriform sinus. The purpose of today's visit is to obtain baseline swallow function prior to esophageal sphincter treatment in order to evaluate potential effects of such treatment on the pt's swallow safety. Subjective Observations The pt arrived on time and provided updated case history. Reported by Patient Other Symptoms Coughing,Difficulty swallowing pills,Difficulty swallowing solids,Food gets stuck Current Diet Dysphagia mechanical Baseline Feeding Method Independent in self-feeding Objective Assessment Mental Status Alert Oral Integrity WFL Dentition Within normal limits Lip Function Within normal limits Observation of Lips at Rest Symmetrical Pucker Within normal limits Lip Retraction Within normal limits Alternating Pucker/Lip Retraction Within normal limits Tongue Function Within normal limits Observations of Tongue at Rest Within normal limits Tongue Protrusion Within normal limits Tongue Retraction Within normal limits Tongue Lateralization Within normal limits Jaw Function Within normal limits Observations of Jaw at Rest Within normal limits Jaw Opening Within normal limits Jaw Closing Within normal limits Jaw Lateralization Within normal limits Hard/Soft Palate Function Within normal limits Observations of Hard/Soft Palate Within normal limits Gag Reflex Within normal limits Nasality Within normal limits Phonation Within normal limits Respiratory Sufficiency Within normal limits Food and Liquid Trials Position During Assessment Upright (90 degrees) Liquids Trialed Thin Solids Trialed Mechanical Soft,Regular Administration Type Cup single sip,Cup consecutive sips,Self-feeding Oral Impairment Within normal limits Oral Phase Comments Pt performs extensive mastication independently to promote passage of bolus through UES and LES. Pharyngeal Impairment Moderately impaired Pharyngeal Phase Comments Pt continues with poor pharyngeal clearance of solids consistent with MBS findings in August 2020, indicative of reduced UES opening and pocketing in vallecula and pyriform sinuses. The pt was able to sense the slow passage of boluses through pharynx and esophagus, performing multiple swallows with and without liquid to assist in clearance. With three boluses of moderate and advanced textures (diced fruit in juice and peanut butter on cracker) , the pt sensed pharyngeal residue, coughed it back to the oral cavity, masticated further, and swallowed again. This, in addition to multiple dry and wet swallows, was effective in clearing boluses from pharynx to esophagus. Fatigue/Endurance Endurance WNL Strategies Attempted Head rotation,Effortful swallow Findings Swallowing Function Pharyngeal phase dysphagia Severity of Swallow Impairment Moderately-severely impaired Contributing Factors to Swallow Excessive pharyngeal residue Impairment Comments Limited UES extension and duration of opening Prognosis Fair Based on Comorbidities,Duration of symptoms/severity Impact on Safety and Functioning Risk for aspiration,Risk for inadequate nutrition/hydration Recommendations Instrumental Assessment No Swallowing Treatment Yes Frequency Follow up 1-3x after GI consultation and/or tx of UES and LES Recommended Solids Dysphagia Advanced Recommended Liquids Thin Safety Precautions/Swallowing Remain upright (90 degrees) Recommendations during all oral intake,Upright position at least 30 minutes after meals,Small bites and sips when eating,Slow rate; swallow between bites,Multiple swallows Medication Recommendations As Tolerated Education Patient/Caregiver Education Described results of evaluation,Patient expressed understanding of evaluation, Patient expressed agreement with goals & treatment plans, Patient expressed understanding of safety precautions,Patient expressed understanding of feeding recommendations Goals Short-term Goals 1. The pt will participate in ongoing assessment and modification to POC as indicated in conjunction with GI/ENT consultations and treatments of esophageal sphincters. 2. The pt will continue performing safe swallow strategies independently to reduce risk of aspiration and increase tolerance of oral intake. 3. The pt will perform exercises to increase strength , coordination and ROM of swallow musculature independently to reduce pharyngeal residue and risk of aspiration. Long-term Goals 1. The pt will follow HEP independently as prescribed to reduce pharyngeal residue and risk of aspiration. 2. The pt will tolerate least restrictive diet to meet her nutrition and hydration needs.
--- NOTE | 2021-08-14 15:29 | ST.IPDYTX ---
Visit Care Team Role Provider Type Guillaume Cortés MD Attending Provider Non-Staff Primary Care Provider Referring Provider Specialty: Internal Medicine Address: [facility] [address], [place], [address] Email: MANAGER PHYSICAL Dysphagia Treatment MANAGER PHYSICAL Dysphagia Treatment Start: 08/14/21 15:10 Freq: Status: Active Protocol: Document 08/14/21 15:10 VINNY (Rec: 08/14/21 15:11 VINNY [id number]) Dysphagia Treatment Session Time Visit Start Time 14:30 Visit Stop Time 15:05 Total Visit Minutes 35 Visit Information Visit Number 07/12 Plan of Care Dates 07/24/21 - 10/21/21 Insurance Information Medicare Setting Assessment Location Outpatient Care Visit Type Note Type Discharge Summary Patient Information Subjective Observations The pt arrived on time. She underwent upper endoscopy 12/21 with findings of Widely patent, non-obstructing and mild Schatzki ring. Dilated. All other findings of stomach and duodenum, and esophageal contractility were WNL. No specimens were collected. Pt was d/c'd home to resume previous diet and medications. The pt reported reduction of pain at sternal area during swallow, as well as reduced anxiety just knowing that nothing is just sitting there. She stated being done with additional examinations or treatments related to dysphagia and that she is managing her food intake effectively with small bites and sips, head turn to right as needed, and liquid wash as needed. I can eat normal food . It's just the way I eat isn' t normal. Treatment Treatment Activities Consulted with the pt RE ENT findings and POC. The pt had questions related to Schatzki' s ring, which were answered. Based on positive results of endoscopy and the pt's continued good tolerance of diet, agreed to discharge from skilled intervention. Recommended pt continue with swallow exercises as a maintenance program. She was in agreement. Assessment Patient Response to Treatment Good Rehab Potential Good Assessment of Improvement While much of the pt's diet is soft and/or liquid, she continues to tolerate regular diet texture WFL with compensatory strategy use as needed. Oral and pharyngeal swallow phases are at highest level of function. The pt reports improved comfort with oral intake following dilation of Schatzki's ring and has elected to discontinue further assessment and treatment of dysphagia symptoms, including evaluation and/or treatment of UES. She expressed gratitude to this MANAGER PHYSICAL and agreed to follow up again should any symptoms worsen or new symptoms appear. Diet Recommendations Recommendations Continue Current Diet Liquids Order Thin Diet Order Regular Medication Recommendations As Tolerated Comments Modifications to textures as needed, per pt's discretion. Aspiration Precautions Recommended Precautions Upright at 90 Degrees, Alternate Liquids/Solids,Small Bites/Sips,Effortful Swallow, Double Swallow,Right Head Turn Treatment Plan Placement Recommendation after Discharge Home Appropriate for Continued Therapy No Therapy Recommendations Discharge from skilled intervention. Dysphagia Goals GOALS HAVE BEEN MET 1. The pt will participate in ongoing assessment and modification to POC as indicated in conjunction with GI/ENT consultations and treatments of esophageal sphincters. 2. The pt will continue performing safe swallow strategies independently to reduce risk of aspiration and increase tolerance of oral intake. 3. The pt will perform exercises to increase strength , coordination and ROM of swallow musculature independently to reduce pharyngeal residue and risk of aspiration. 1. The pt will follow HEP independently as prescribed to reduce pharyngeal residue and risk of aspiration. 2. The pt will tolerate least restrictive diet to meet her nutrition and hydration needs.
== END 2021-08-20 12:09 ==
LOC: SP 14:30
PROVIDERS: PCP Internal Medicine; Referring Provider Internal Medicine; Visit Provider Internal Medicine
DX: R13.10 Dysphagia, unspecified (principal)
CPT/HCPCS: 92526; 92610

== ENCOUNTER → 2021-10-08 10:06 | Outpatient (CLI) | payer MEDICARE, OTHER, SELFPAY ==
[2021-10-08 12:15] LABS: COVID19 -Nasal RAPID Negative (Negative)
== END ==
PROVIDERS: PCP Internal Medicine; Visit Provider Family Medicine Sleep Medicine
DX: Z20.822 Contact with and (suspected) exposure to COVID-19 (principal)
CPT/HCPCS: 87635; C9803

== ENCOUNTER 2021-10-09 12:39 | Day surgery (SDC) | payer MEDICARE, OTHER, SELFPAY ==
[2021-10-01 08:40] VITALS: BMI 23.2
[2021-10-09] VITALS (10 sets, daily range): BP systolic 97–142; BP diastolic 56–69; PULSE 55–98; RESP 9–18; TEMP 36.4–36.8; O2SAT 91–99; BMI 23.2
[2021-10-09] MEDS: LACTATED RINGERS 1,000 ML 42 ML IV ×2 (14:09→18:27)
--- NOTE | 2021-10-09 15:00 | DI.RAD.S_ITS ---
PROCEDURE: XR KNEE RT 1TO2V INDICATIONS: POST OP RIGHT KNEE TECHNIQUE: 2 view(s) of the knee acquired. COMPARISON: [facility], CR, XR KNEE 4+ VIEWS RIGHT, 06/06/2021, 12:12. FINDINGS: Bones: Patient is status post knee joint arthroplasty. Hardware components are in expected positions. Visualized bony structures are intact. Soft tissues: Overlying postoperative changes are noted. IMPRESSION: Expected postsurgical change. Dictated by: Chinedu Jurado M.D. on 10/10/2021 at 10:15 Approved by: Chinedu Jurado M.D. on 10/10/2021 at 10:17
[2021-10-09] MEDS: VANCOMYCIN 1,000 MG/200 ML PIGGYBACK 200 MG IV (15:24)
[2021-10-09] MEDS: CELECOXIB 200 MG CAPSULE PO (15:36)
--- NOTE | 2021-10-09 15:38 | PM.PREOP ---
Pre-operative Note COVID-19 COVID-19 status: Negative Interval Note History & Physical reviewed/Exam performed by Physician: Yes Changes to H&P: No
[2021-10-09] MEDS: CEFAZOLIN 2 GM/20 ML SYRINGE IV ×2 (16:37→20:51)
[2021-10-09] MEDS: TRANEXAMIC ACID 1,000 MG VIAL 2000 MG INJ ×2 (16:48→18:09)
--- NOTE | 2021-10-09 17:08 | SUR.OPER ---
Supine on padded OR bed. Pillow under head, arms secured on padded armboards <90 degree abduction. Safety belt across torso. Non-operative leg secured with tape over blanket over lower leg. Operative leg secured in DeMayo/Clem/Nathe positioner. Foam padded brace at thigh of operative leg.
[2021-10-09] MEDS: BUPIVACAINE LIPOSOME 266 MG/20 ML VIAL INJ (17:13)
[2021-10-09] MEDS: BUPIVACAINE 0.25% (PF) 60 ML, EPINEPHrine 0.3 MG INJ (17:15)
--- NOTE | 2021-10-09 18:25 | P.OP_ITS ---
Operative Date/Time/Diagnoses Date of procedure: 10/09/21 Time of procedure: 16:35 Pre-op diagnosis: Right knee osteoarthritis Post-op diagnosis: same Procedure & Clinicians Procedure: Right total knee arthroplasty Same procedure as scheduled: Yes Indications: The patient has had progressively worsening right knee pain with radiographic changes consistent with arthritis. Non-operative management has failed and the patient has requested total knee replacement. The risks, benefits and alternatives to surgery were discussed with the patient prior to proceeding. Risks discussed included, but were not limited to, failure to relieve pain, stiffness, infection, nerve damage, deep venous thrombosis, pulmonary embolism, stroke, coma, heart attack, permanent paralysis and , as well as the potential need for eventual revision of the prosthetic. Surgeon: Cris Barclay Director Market Intelligence: Renu Hudson Anesthesia Type: General Operative Notes Findings: Severe medial compartment osteoarthritis, good quality bone, good gap balance Closure Type: primary Specimen(s): none sent Prosthetic devices, grafts, tissues, transplants, or devices: Barclay and nephew size 4 femur, size 3 tibia, +10 poly, 35 x 7-1/2 mm patella Estimated Blood Loss (mL): 250 Blood products transfused: none Tourniquet time (min): 66 Procedure in detail: The patient was seen in the pre-operative area, where the patient identified the right knee as the operative site and this was marked with my initials. The patient received pre-operative antibiotics, and was taken to the operating room and placed on the operative table in the supine position. After satisfactory anesthesia, a field recorder out was performed. The right leg was encircled with a tourniquet about the proximal thigh, and the leg was prepared from the toes to the tourniquet with ChloroPrep in the usual fashion and draped through sterile drapes. The leg was elevated and exsanguinated with Eschmark bandage and the tourniquet inflated to [250] mmHg pressure. The knee was approached through an approximately 18 cm incision centered over the patella and carried into the knee through a medial parapatellar arthrotomy. A portion of the medial and lateral meniscus was resected. Soft tissue was carefully mobilized around the patella the patella was measured with a caliper. Bone was resected from the patella and the patellar height was reconstituted with up an appropriate sized patellar component. A cover was then placed on the patella. A small amount of additional medial and lateral meniscus was resected. The distal femur was cut at 5?. A [+2] cut was used. It looked like an appropriate distal femoral cut and the cut was made without difficulty. An extramedullary guide was used for the tibial cut. 10 mm was resected off the least affected side.The tibia was prepared. The rotation was assessed. The patient was placed in extension residual medial and lateral meniscus as well as any residual bone was carefully resected. [No] additional tibia was resected. Hemostasis was achieved especially posteriorly. Additional local was injected into the posterior capsule. There was slight excoriation of the posterolateral capsule. Hemostasis was achieved. The extension gap was assessed and additional releases for gap balancing were performed as necessary. It was checked with the gap coarse wire drawer. The femoral component was trial was placed and the notch was finished. The rotation was assessed and the appropriate size femoral guide was placed on the distal femur and finishing cuts were made. There was no evidence of notching. The anterior, posterior and chamfer cuts were then made. The posterior osteophytes and soft tissues were then removed. The posterior capsule was injected with part of a mixture of 60 ml 0.25% Marcaine mixed with 20 ml Exparel for post operative pain control. The remainder of this mixture was injected into the capsule and subcutaneous tissues during cement curing. The tibial and femoral components were then placed and the knee placed through a range of motion. Range of motion was [0-130], with good stability throughout the range. The trials were then removed, and the tibia was finished. The bone was prepared with pulsatile lavage, and dried with a sponge. Cement was applied and the final prosthetics placed. Excess cement was removed during and after cement curing. After confirming there was no extruded cement posteriorly, the final tibial insert was placed. The knee was copiously irrigated and the tourniquet deflated. Hemostasis was obtained with the Bovie cautery. The capsule was closed with interrupted nonabsorbable suture. The subcutaneous layer was closed with barbed sutures, and the skin with a running 3-0 V-Lock suture and Surgical glue. An Aquacel Ag dressing was applied and the patient was taken to recovery having tolerated the procedure well. Complications: none Post-operative Condition: stable Disposition: Acute Care Plan for aftercare: The patient will be maintained on a standard total knee replacement protocol with weight bearing as tolerated. The patient will receive aspirin and sequential compression devices for DVT prophylaxis. The patient will be discharged home when safe for the home environment.
[2021-10-09] MEDS: LACTATED RINGERS 1,000 ML 100 ML IV (20:09)
[2021-10-09] MEDS: ASPIRIN EC 81 MG TABLET PO (20:51)
[2021-10-09] MEDS: DOCUSATE 100 MG CAPSULE PO (20:51)
[2021-10-09] MEDS: IBUPROFEN 400 MG TABLET PO (20:51)
[2021-10-09] MEDS: ONDANSETRON 4 MG ODT PO (21:16)
[2021-10-10] MEDS: MIRTAZAPINE 15 MG TABLET 3.75 MG PO (00:25)
[2021-10-10] MEDS: IBUPROFEN 400 MG TABLET PO ×3 (00:26→12:27)
[2021-10-10 00:36] VITALS: BP 99/58; PULSE 69; RESP 18; TEMP 36.2; O2SAT 98
[2021-10-10] MEDS: HYDROMORPHONE 2 MG TABLET 1 MG PO ×2 (02:13→08:19)
[2021-10-10 04:00] VITALS: BP 91/38; PULSE 69; RESP 18; TEMP 36.2; O2SAT 95
[2021-10-10 04:05] VITALS: BP 90/43
[2021-10-10 05:03] LABS: Hematocrit 36.9 % (36-46); Hemoglobin 12.7 g/dL (12.0-16.0)
[2021-10-10] MEDS: CEFAZOLIN 2 GM/20 ML SYRINGE IV (05:30)
[2021-10-10] MEDS: LEVOTHYROXINE 75 MCG TABLET 88 MCG PO (06:55)
--- NOTE | 2021-10-10 07:52 | P.DS_ITS ---
History of Present Illness History of Present Illness Date Patient Seen: 10/10/21 Time Patient Seen: 07:53 Chief complaint: RT TKA 10/09 *OPB* Narrative: Operative Date/Time/Diagnoses Date of procedure: 10/09/21 Time of procedure: 16:35 Pre-op diagnosis: Right knee osteoarthritis Post-op diagnosis: same Procedure & Clinicians Procedure: Right total knee arthroplasty Same procedure as scheduled: Yes Indications: The patient has had progressively worsening right knee pain with radiographic changes consistent with arthritis. Non-operative management has failed and the patient has requested total knee replacement. The risks, benefits and alternatives to surgery were discussed with the patient prior to proceeding. Risks discussed included, but were not limited to, failure to relieve pain, stiffness, infection, nerve damage, deep venous thrombosis, pulmonary embolism, stroke, coma, heart attack, permanent paralysis and , as well as the potential need for eventual revision of the prosthetic. Surgeon: Cris Barclay [employer] Supervisor: Renu Hudson Anesthesia Type: General Operative Notes Findings: Severe medial compartment osteoarthritis, good quality bone, good gap balance Closure Type: primary Specimen(s): none sent Prosthetic devices, grafts, tissues, transplants, or devices: Barclay and nephew size 4 femur, size 3 tibia, +10 poly, 35 x 7-1/2 mm patella Estimated Blood Loss (mL): 250 Blood products transfused: none Tourniquet time (min): 66 Discharge Providers Provider Discharge Date: 10/10/21 Primary care physician: Guillaume Cortés MD Consults: 10/01/21 10:19 Consult to Anesthesiology Routine Comment: Consulting Provider: Anesthesiologist Reason for consultation: PAC courtesy re: Swallowing difficulties 10/09/21 07:28 Consult to Anesthesiology Routine Comment: Consulting Provider: Anesthesiologist Reason for consultation: Regional block for post operative pain control 10/09/21 19:39 Consult to Discharge Planning Routine Comment: Consult to Physical Therapy Evaluate & Treat Comment: Physician Instructions: postop TKA protocol Consult to Respiratory Therapy Evaluate & Treat Comment: Physician Instructions: Evaluate and treat Discharge provider: Kaitlyn Buenrostro PA-C Summary Hospital Course Discharge Diagnosis: s/p RIGHT total knee arthroplasty Hospital Course: Ms Ceja'dejon hospital course was unremarkable. On POD# 1 she was eating and voiding without difficulty and her pain was controlled w/ oral medication. She was evaluated by PT prior to discharge. Exam Vital Signs (past 8 hours): - 10/10/21 00:36 10/10/21 04:00 10/10/21 04:05 Temperature 97.1 F L 97.1 F L Pulse Rate 69 69 Respiratory Rate 18 18 Blood Pressure 99/58 L 91/38 L 90/43 L Pulse Oximetry 98 95 Oxygen Delivery Method Room Air Oxygen Flow Rate 0 Narrative Exam Narrative: 5/5 strength in hip flexors, quadriceps, hamstrings, DF, PF, EHL on right. Sensation to light touch intact in RLE. Calves soft, compressible, nontender and without palpable cords or masses. Aquacel dressing CDI. 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) Tachycardia Temporal lobe epilepsy, intractable Thyroid disease Surgical History (Updated 10/10/21 @ 07:47 by Kaitlyn Buenrostro PA-C) H/O breast biopsy H/O section H/O eye surgery H/O foot surgery H/O hand surgery H/O tubal ligation History of back surgery History of bilateral cataract extraction History of lumbar laminectomy (~1979) History of surgery (2020) History of tonsillectomy Hx of appendectomy Hx of craniotomy Hx of esophagogastroduodenoscopy Status post cervical spinal fusion Status post lobectomy of brain (2012) Social History marital status: number of children: 3 household members: none Smoking Status: Never smoker alcohol intake: never caffeine: Yes Discharge Assessment & Plan Assessment and Plan Assessment: s/p RIGHT total knee arthroplasty Plan of Treatment: Discharge home, outpt PT, ASA 81 mg BID for VTE prophylaxis, hydromorphone for pain d/t codeine sensitivity/allergy. Discharge Plan Discharge Plan Patient Disposition: Home Discharge orders & Medications Discharge Orders: Discharge (Order); Ordered 10/10/21 Ordered By: Kaitlyn Buenrostro Prescriptions: New aspirin 81 mg Tablet,Delayed Release (Dr/Ec) 81 mg PO BID Qty: 90 0RF docusate sodium 100 mg Capsule 100 mg PO BID PRN (Reason: constipation) Qty: 60 2RF hydromorphone 2 mg Tablet 2 mg PO Q3H PRN (Reason: Pain, Severe (7-10)) Qty: 30 0RF ibuprofen 400 mg Tablet 400 mg PO Q4HR Qty: 120 0RF Continued levothyroxine 75 mcg tablet 88 mcg PO DAILY 0RF hydromorphone [Dilaudid] 2 mg tablet 1 mg PO Q6H PRN (Reason: Pain) 0RF Rx Instructions: reports taking 1 mg 1-2 times a week pregabalin [Lyrica] 25 mg capsule 25 mg PO DAILY PRN (Reason: Pain) 0RF atenolol 25 mg Tablet 12.5 mg PO QPM 0RF estradiol [Estrace] 0.01 % (0.1 mg/gram) cream 1 g vaginal QWEEK 0RF Rx Instructions: Insert vaginally 2x a week. mirtazapine 7.5 mg tablet 3.75 mg PO SEEINSTR 0RF Label Comments: Pt takes Tues, Thurs, Sat Advil Sinus Congestion-Pain 200-10 mg Tablet 1 - 2 tab PO Q4-6H PRN (Reason: Pain) 0RF diphenoxylate-atropine [Lomotil] 2.5-0.025 mg Tablet See Rx Instructions .ROUTE .COMPLEX 0RF Rx Instructions: diahrrhea azelastine 137 mcg (0.1 %) aerosol,spray See Rx Instructions .ROUTE .COMPLEX PRN (Reason: Nasal Congestion) 0RF Rx Instructions: nasal congestion loratadine [Claritin] 10 mg Tablet See Rx Instructions .ROUTE .COMPLEX 0RF Rx Instructions: seasonal allergies Follow up/Referrals: Guillaume Cortés MD [Primary Care Provider] - Cris Barclay MD [Physician] - As previously scheduled (Follow up w/ Dr Barclay on 10/24/2021 @ 2:00 pm at [facility] office in [place]) Diet/Activity/Treatments Diet: Diet as Tolerated Activity: Walk frequently! Weightbearing as tolerated to right leg. Cold/Heat Therapy: May apply ice to front and back of knee as needed for pain for up to 30 minutes at a time, 5 times/day. Skin/Wound/Dressing Care Report to your healthcare provider any signs of infection, such as:: chills, fever, night sweats, unusual drainage and unusual redness Dressing: May remove POOJA wrap and shower starting today. Leave Aquacel dressing in place until follow up in office. No bathing or otherwise soaking incision. Call office if dressing becomes saturated inside. Visit Report/Discharge Packet Instructions: DI for Knee Replacement Stand Alone Forms: Surgery Discharge Discharge Data Primary Care Provider: Guillaume Cortés Attending Provider: Cris Barclay
[2021-10-10] MEDS: LORATADINE 10 MG TABLET PO (08:20)
[2021-10-10 09:46] VITALS: BP 123/53; PULSE 56; RESP 17; TEMP 36.2; O2SAT 96
--- NOTE | 2021-10-10 11:50 | PT.IIE ---
Current Diagnoses Unilateral primary osteoarthritis, right knee (10/09/21) Presence of unspecified artificial knee joint (10/09/21) Surgery Performed Operation Date: 10/09/21 14:15 Actual Procedures p Total Knee Arthroplasty(Right) - Cris Braclay MD Medical History (Last Reviewed 10/09/21 @ 12:15 by Rosalia Barney RN) Arm mass Joyner cyst Dominguez aneurysm Chronic pain Chronic UTI Depression Difficulty swallowing Fall from ground level (08/2021) IBD (inflammatory bowel disease) Kidney cysts Lipoma Lower urinary tract symptoms (LUTS) Macular degeneration of both eyes Major depressive disorder, recurrent, 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 Neurological disease Osteoporosis Postmenopausal atrophic vaginitis Seizure disorder Sinus infection (10/01/21) 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) Tachycardia Temporal lobe epilepsy, intractable Thyroid disease Physical Therapy Inpatient Evaluation/Re-Eval M1 PT/OT-IP Prior Functional Status Start: 10/10/21 13:35 Freq: NEEDED Status: Active Protocol: Document 10/10/21 11:50 AB (Rec: 10/10/21 13:45 AB [id number]) Medical Review Prior Functional Status Medical History Reviewed Yes Communication able to make needs known Mobility and Gait pt stated that she is indpeendent with all mobilities and ambulation without AD but occasionally uses a SPC for outdoor mobility Social History Household Members none Living Arrangements House Number of Floors (Floors) One Floor Number of Stairs To Enter/Railing? no steps to enter the house but has 1 step up to main level of the house Home Environment Standard Height Toilet,Walk in Shower Home Equipment Front Wheel Walker,Straight Cane,Shower Seat with Backrest ,Hand Held Shower,Grab Bars In Shower Additional Social History Comment pt stated that her daughter will stay with her until friday and then afterwards, a caregiver will come in the morning daily ~ 1 hour to get her ready/set up and in between will have friends that can assist her if needed. M2 PT-IP Current Condition Start: 10/10/21 13:35 Freq: NEEDED Status: Active Protocol: Document 10/10/21 11:50 AB (Rec: 10/10/21 13:45 AB [email or web address]) Physical Therapy Current Condition Current Condition Evaluation Date 10/10/21 Treatment Diagnosis s/p R TKA; difficulty in walking Onset Date 10/09/21 M3 PT-IP Subjective Start: 10/10/21 13:35 Freq: NEEDED Status: Active Protocol: Document 10/10/21 11:50 AB (Rec: 10/10/21 13:45 AB [email or web address]) Subjective Physical Therapy Visit Type Type Initial Evaluation Visit Start Time 11:50 Visit Stop Time 12:25 Total Visit Minutes 35 Number of MAKEUP SALES CONSULTANT Visits 0 Physical Therapy Visit Comments Patient Comments agreeable to do PT Therapy Pain Assessment Pain When Pain Assessed At Rest Pain Present Pain Present Pain Reported Location Right Knee Intensity 4 Scale Used increase to 6/10 with mobility Pain Management Techniques Apply Cold,Distraction, Elevation,Modification of Treatment,Re-positioning, Timing of Activity with Medications M4 PT-IP Mobility and Gait Start: 10/10/21 13:35 Freq: NEEDED Status: Active Protocol: Document 10/10/21 11:50 AB (Rec: 10/10/21 13:45 [id number]) PT-Bed Mobility Assessment Supine to Sit Supine to Sit Standby Assistance Sit to Supine Sit to Supine Standby Assistance PT-Transfer Assessment Sit to and From Stand Sit to and from Stand Standby Assistance Equipment Transfer Assistive Device Gait Belt,Front Wheeled Walker Orthotic/Prosthetic Devices or Brace: No Transfers Transfer Destination Chair Transfer Technique ambulated Transfer Ability Level of Assist Standby Assistance,1 Person Assistance,Use of Upper Extremities Comments Mobility Comments completed supine to sit SBA. completed sit to stand SBA and ambulated in room ~ 15ft using fWW SBA and sat on chair . agreed to do stairs. educated on stair climbing. completed ambulated towards the stairs ~ 30 ft using SBA and completed up/down platform step using FWW SBA to CGA and initially requiring cues but able to complete second set without cues needed. pt ambulated more in the hallway using FWW ~ 75 ft SBA. agreed to sit on the chair. positioned on the chair. call light and table placed within reach. Gait Assessment Gait Gait Assistance Required: Standby Assistance Distance (Feet) 75 Able to Maintain Weight Bearing Status Yes During Gait Assistive Devices Assistive Device Gait Belt,Front Wheeled Walker Orthotic/Prosthetic Devices or Brace: No Gait Deviations General Gait Pattern Antalgic,Decreased Stride Length,Decreased Feet Clearance Factors Limiting Gait Function Factors Limiting Gait Function Decreased Activity Tolerance, Limited Range of Motion,Pain, Poor Balance Stair Climbing Assessment Evaluation Level of Assist On Stairs Standby Assistance,Contact Guard Assistance Devices Stair Climbing Assistive Devices Front Wheel Walker Technique/Endurance Stair Climbing Direction Ascend and Descend Stair Climbing Technique Step to Step Number of Steps Climbed 1 Query Text: Stair Climbing Set # Repetitions (reps) 2 PT-Balance Assessment Sitting Balance and Reactions Static Sitting Balance Ability Good Dynamic Sitting Balance Ability Good Standing Balance and Reactions Static Standing Balance Ability Fair Dynamic Standing Balance Ability Fair Device Used FWW M5 PT-IP Objective Assessments Start: 10/10/21 13:35 Freq: NEEDED Status: Active Protocol: Document 10/10/21 11:50 AB (Rec: 10/10/21 13:45 AB [id number]) Orientation Orientation/Cognition Level of Alertness Alert Orientation Name,Place,Situation Safety Awareness Understands Safety Issues Memory Description No Deficits Noted Gross Range of Motion Lower Extremity ROM Impairments R knee flexion: ~ 100 deg Strength Lower Extremity Strength Assessment Right Impaired Knee 4-/5 Coordination Assessment Gross Coordination Gross Coordination WNL Sensation Assessment Sensation Gross Sensation WNL Muscle Tone Muscle Tone WNL Yes M6 PT-IP Treatment Start: 10/10/21 13:35 Freq: NEEDED Status: Active Protocol: Document 10/10/21 11:50 AB (Rec: 10/10/21 13:45 AB [email or web address]) Physical Therapy Treatment Education Education Provided Precautions,Weight Bearing Status,Post-Op Packet,Safety M7 PT-IP Assessment and Plan Start: 10/10/21 13:35 Freq: NEEDED Status: Active Protocol: Document 10/10/21 11:50 AB (Rec: 10/10/21 13:45 AB [email or web address]) PT Summary Assessment and Plan Potential Rehabilitation Potential Good Status of Condition at Evaluation Stable Summary Impairments Pain,ROM,Strength,Balance, Coordination,Sensation,Tone, Cognition,Bed Mobility, Transfers,Gait,Activity Tolerance Assessment Summary pt requiring SBA to CGA with mobility using FWW. pt plans to go home and will have her daughter/caregiver and friends to assist her. pt stated that she has outpt PT schedules. pt may go home when medically stable. Goals Bed Mobility Goal Independent Transfer Goal Independent,Front Wheeled Walker Gait Goal Independent,Front Wheel Walker Gait Distance 200 Other Goals up/down platform step SBA using FWW Days to Meet Goals 3 Frequency of Treatment Frequency Of Treatment Twice a Day Treatment Plan Physical Therapy Treatment Plan Bed Mobility Training,Transfer Training,Gait Training, Therapeutic Exercise,Balance Retraining,Post Op Education, Discharge Planning,Hot or Cold Pack,Neuromuscular Re-ed, Coordination Retraining,Manual Therapy Weight Bearing Status Weight Bearing Status Weight Bear as Tolerated Allowed Weight Bearing Amount (enter % RLE WBAT or #) (%) Recommendations To Nursing Amount of Assist Needed 1 Person Assist Discharge Recommendations PT Discharge Recommendations Home with Assistance, Outpatient PT Transportation Needs at Discharge Private Vehicle
--- NOTE | 2021-10-10 12:47 | PC.NURSE ---
Pt is AxOx4, needs STA and cooperative. VSS, pt c/o R knee pain during activity and recieved PRN Dilaudid 1mg PO with good effect. Pt worked with PT and cleared from PT. Pt is doing well with STA with FWW. Pt is eating well and ready to d/c.. D/c instructions are givein including stroke education and fall prevention.
--- NOTE | 2021-10-10 13:51 | CM.DANOTE ---
DCP: Case received, EMR reviewed and met with patient. Introduced self and role. Was able to obtain information regarding patient's baseline activity status prior to hospitalization. DCP assessment completed with information currently available. Patient is a 81 year old female who admitted yesterday morning to the care of the orthopedic team. PCP: Dr. Cortés. Payer: confirmed: Medicare/[employer] [place] [employer]. Patient came to the hospital via private vehicle for a surgical procedure. Patient had right total knee arthroplasty. Patient has history of unilateral primary osteoarthritis of the right knee. Met with patient in her room. She is alert and oriented. She resides in [place]. She is independent at baseline, does use a cane and is set up with [facility] in [place]. She has her daughter staying with her until Friday, and a friend after that, and has help with neighbors. Asked about home health, but she has her appointment at [facility] later this month, and wants to keep it. Home Health would take a week to come out, and she would need to be on their services for two weeks, confirmed with [place] at [facility]. P: Patient has discharge orders for home today pending working with Malcolm Barton RN/Medical Writer Discharge Planning/Care Management CM Discharge Assessment Start: 10/10/21 11:48 Freq: Status: Active Protocol: Document 10/10/21 11:48 (Rec: 10/10/21 11:50 [id number]) Discharge Planning Assessment Assigned Die Fitter Oly Barton RN/Medical Writer Advance Directives? Yes Advance Directives on File No History Provided By Patient,Medical Record Prior Living Arrangements House Household Members none Type of transporation used prior to Drives own vehicle admit Independent with ADL's Yes Caregiver for Another No DME Already Rented / Owned Cane Patient/Family Preference OP PT Therapy Comment Patient is set up with [facility] Barriers to Discharge No Comment Patient indicated, she has family, friends, and neighbors to help out. Discharge Plan Home Transportation Arrangement Family Referrals Initiated None needed Whiteboard Updated in Patient Room with Yes name and ext. # of Die Fitter Review Status In Process Next Review Type Continued Stay Review Pre-Anesthesia Assessment Start: 10/01/21 08:39 Freq: Status: Complete Protocol: Document 10/01/21 08:40 CAB (Rec: 10/01/21 10:19 [facility] [id number]) Pre-Anesthesia Assessment Preferred Name Gabe Patient Information Reviewed Via Phone Assessment Assessment Completed With Patient Comment Labs/ECG done per pt, not here , COVID @ [facility] 10/08/21 Primary Care Provider Guillaume Cortés Seen Specialist in Last 12 Months Yes Specialist Seen Stem Frazer,ENT,Opthamologist /Apartment Community Assistant Manager,Orthopedist, Urologist,Other Comment GI, Psych Primary Language Yi Support Engineer Required No Height 5 ft 1 in Weight 123 lb Body Mass Index (BMI) 23.2 Hearing Ability Hard of Hearing,Use of Hearing Aid Visual Assist Glasses Dentition Type Teeth, Natural Present Barriers to Learning None Hx Anesthesia Reactions Pt does not want to be intubated or a spinal, just wants propofol Hx Family Anesthesia Reaction No Hx Malignant Hyperthermia No Hx Blood Transfusions Yes: 1970 r/t aneurysm rupture during surgery Hx Blood Transfusion Reaction No Anesthesia Review Requested Yes: PAC courtesy re: Swallowing difficulties r/t cervical neck sugery injury alcohol intake never Smoking Status Never smoker Substance Use Type does not use Pain Present Pain Reported Musculoskeletal Symptoms Abnormal Gait,Back Pain, Difficulty Walking,Joint Pain, Neck Pain,Numbness,Radiating Pain into Limb,Tingling History of Falling (Recent or History of Yes ) Patient is completely paralyzed or No completely immobile Prosthesis or Orthotic Device Cane,Front Wheel Walker Mental Status Oriented to own ability Is patient on oxygen? No Does patient have MUNGUIA/SOB No Hx Sleep Apnea No Currently Taking a Beta Malorie Yes: Atenolol Can You Climb a Flight of Stairs Without Yes SOB Hx Chest Pain No Hx SOB No Hx Syncope or Dizziness No Anti-Coagulant Therapy No Has a Stem Frazer Yes: Dr. Santos Cardiac Testing No Hx Pacemaker/ICD No Pacemaker Rep Required? No Diet Type At Home Regular dysphagia Yes: r/t cervical injury, must be crushed, grinded Gastrointestinal Symptoms Diarrhea Comment Hx IBS Urinary Catheter Present No Hx Urinary Self Catheterization No Comment Hx of UTIs Diabetes No Patient No Lactating No Hx Drug Resistant Organism No Presence of External or Internal Medical Yes: Cervical, bilat eye IOLs, Devices timothy clip Have you had any close contact with Yes: Pt states she feels she someone diagnosed with COVID-19? had COVID 08/21, but tested negative x 2 Are you experiencing any of these No symptoms symptoms? Received a COVID vaccine? Yes Received all doses? Yes Marital Status / Lives With none Prior Living Arrangements House Number of Floors (Floors) One Floor Support System Child/Children Does the Patient Have Assistance After Yes: Daughter will stay w/pt 3 Surgery -4 days then has hired someone Patient Discharge Plan Description Return Home Comment Pt advised 1-2 day length of stay per surgeon Feels Safe in Current Environment Yes Been Physically Hurt or Threatened By a No Person in Current Environment Do you have thoughts of harming yourself None or others? Are you currently considering suicide? No Do you have a plan to hurt yourself or No Plan others? Do You Have Any Spiritual Beliefs That No May Affect Your HC Choices? Do You Have Any Cultural Practices That No May Affect Your HC Choices? Comment Baptist Who Can We Speak to About Patient's Care Family, friends Identifying Code for Release of Patient Declines to issue Information Health Care Proxy/Next of Kin Sylvia campuzano) Health Care Proxy Emergency Contact Name Sylvia (tia) Emergency Contact Advance Directives? Yes Advance Directives on File No Requested Patient Bring Advanced Yes Directives DOS Power of Hotel Receptionist Yes Power of Hotel Receptionist Name Sylvia (tia) Power of Hotel Receptionist PAC Instructions Do not shave/clip surgical site,Durable medical equipment ,Medications to take/avoid, Nasal antibiotic,No ETOH/ petroleum product on skin DOS, NPO,Post-op transportation,Pre -op antibiotic,Sensory aids, Sturdy shoes/comfortable clothes,Do not bring valuables and remove jewelry Discharge Planning/Care Management CM Discharge Assessment Start: 10/10/21 11:48 Freq: Status: Active Protocol: Document 10/10/21 11:48 (Rec: 10/10/21 11:50 [id number]) Discharge Planning Assessment Assigned Die Fitter Oly Barton RN/Medical Writer Advance Directives? Yes Advance Directives on File No History Provided By Patient,Medical Record Prior Living Arrangements House Household Members none Type of transporation used prior to Drives own vehicle admit Independent with ADL's Yes Caregiver for Another No DME Already Rented / Owned Cane Patient/Family Preference OP PT Therapy Comment Patient is set up with [facility] Barriers to Discharge No Comment Patient indicated, she has family, friends, and neighbors to help out. Discharge Plan Home Transportation Arrangement Family Referrals Initiated None needed Whiteboard Updated in Patient Room with Yes name and ext. # of Die Fitter Review Status In Process Next Review Type Continued Stay Review Pre-Anesthesia Assessment Start: 10/01/21 08:39 Freq: Status: Complete Protocol: Document 10/01/21 08:40 CAB (Rec: 10/01/21 10:19 [facility] [id number]) Pre-Anesthesia Assessment Preferred Name Gabe Patient Information Reviewed Via Phone Assessment Assessment Completed With Patient Comment Labs/ECG done per pt, not here , COVID @ [facility] 10/08/21 Primary Care Provider Guillaume Cortés Seen Specialist in Last 12 Months Yes Specialist Seen Stem Frazer,ENT,Opthamologist /Apartment Community Assistant Manager,Orthopedist, Urologist,Other Comment GI, Psych Primary Language Yi Support Engineer Required No Height 5 ft 1 in Weight 123 lb Body Mass Index (BMI) 23.2 Hearing Ability Hard of Hearing,Use of Hearing Aid Visual Assist Glasses Dentition Type Teeth, Natural Present Barriers to Learning None Hx Anesthesia Reactions Pt does not want to be intubated or a spinal, just wants propofol Hx Family Anesthesia Reaction No Hx Malignant Hyperthermia No Hx Blood Transfusions Yes: 1970 r/t aneurysm rupture during surgery Hx Blood Transfusion Reaction No Anesthesia Review Requested Yes: PAC courtesy re: Swallowing difficulties r/t cervical neck sugery injury alcohol intake never Smoking Status Never smoker Substance Use Type does not use Pain Present Pain Reported Musculoskeletal Symptoms Abnormal Gait,Back Pain, Difficulty Walking,Joint Pain, Neck Pain,Numbness,Radiating Pain into Limb,Tingling History of Falling (Recent or History of Yes ) Patient is completely paralyzed or No completely immobile Prosthesis or Orthotic Device Cane,Front Wheel Walker Mental Status Oriented to own ability Is patient on oxygen? No Does patient have MUNGUIA/SOB No Hx Sleep Apnea No Currently Taking a Beta Malorie Yes: Atenolol Can You Climb a Flight of Stairs Without Yes SOB Hx Chest Pain No Hx SOB No Hx Syncope or Dizziness No Anti-Coagulant Therapy No Has a Stem Frazer Yes: Dr. Santos Cardiac Testing No Hx Pacemaker/ICD No Pacemaker Rep Required? No Diet Type At Home Regular dysphagia Yes: r/t cervical injury, must be crushed, grinded Gastrointestinal Symptoms Diarrhea Comment Hx IBS Urinary Catheter Present No Hx Urinary Self Catheterization No Comment Hx of UTIs Diabetes No Patient No Lactating No Hx Drug Resistant Organism No Presence of External or Internal Medical Yes: Cervical, bilat eye IOLs, Devices timothy clip Have you had any close contact with Yes: Pt states she feels she someone diagnosed with COVID-19? had COVID 08/21, but tested negative x 2 Are you experiencing any of these No symptoms symptoms? Received a COVID vaccine? Yes Received all doses? Yes Marital Status / Lives With none Prior Living Arrangements House Number of Floors (Floors) One Floor Support System Child/Children Does the Patient Have Assistance After Yes: Daughter will stay w/pt 3 Surgery -4 days then has hired someone Patient Discharge Plan Description Return Home Comment Pt advised 1-2 day length of stay per surgeon Feels Safe in Current Environment Yes Been Physically Hurt or Threatened By a No Person in Current Environment Do you have thoughts of harming yourself None or others? Are you currently considering suicide? No Do you have a plan to hurt yourself or No Plan others? Do You Have Any Spiritual Beliefs That No May Affect Your HC Choices? Do You Have Any Cultural Practices That No May Affect Your HC Choices? Comment Baptist Who Can We Speak to About Patient's Care Family, friends Identifying Code for Release of Patient Declines to issue Information Health Care Proxy/Next of Kin Sylvia campuzano) Health Care Proxy Emergency Contact Name Sylvia campuzano) Emergency Contact Advance Directives? Yes Advance Directives on File No Requested Patient Bring Advanced Yes Directives DOS Power of Hotel Receptionist Yes Power of Hotel Receptionist Name Sylvia campuzano) Power of Hotel Receptionist PAC Instructions Do not shave/clip surgical site,Durable medical equipment ,Medications to take/avoid, Nasal antibiotic,No ETOH/ petroleum product on skin DOS, NPO,Post-op transportation,Pre -op antibiotic,Sensory aids, Sturdy shoes/comfortable clothes,Do not bring valuables and remove jewelry
== END 2021-10-10 13:58 | disposition home or self-care (01) ==
LOC: OR 12:40 → AC 15:58
PROVIDERS: PCP Internal Medicine; Referring Provider Orthopaedic Surgery; Visit Provider Orthopaedic Surgery
PROC: 0SRC0JZ Replacement of Right Knee Joint with Synthetic Substitute, Open Approach (ICD-10-PCS; CPT 27447; principal; 2021-10-09 14:15)
DX: M17.11 Unilateral primary osteoarthritis, right knee (principal); E03.9 Hypothyroidism, unspecified; F32.A Depression, unspecified
CPT/HCPCS: 27447; 36415; 73560; 85014; 85018; 97161; C1776; C1713; C9290; J0171; J0690; J1170; J2704; J3010

== ENCOUNTER → 2021-12-06 10:28 | Outpatient (CLI) | payer MEDICARE, OTHER, SELFPAY ==
[2021-10-09 21:00] VITALS: BMI 23.2
== END ==
PROVIDERS: PCP Internal Medicine; Referring Provider Otolaryngology; Visit Provider Otolaryngology
DX: J34.89 Other specified disorders of nose and nasal sinuses (principal); G44.89 Other headache syndrome
CPT/HCPCS: 86335

== ENCOUNTER → 2022-03-13 14:13 | Outpatient (CLI) | payer MEDICARE, OTHER, SELFPAY ==
[2021-10-09 21:00] VITALS: BMI 23.2
--- NOTE | 2022-03-13 | DI.CT.S_ITS ---
PROCEDURE: CT KNEE RIGHT WITHOUT CON INDICATIONS: RIGHT KNEE PAIN TECHNIQUE: Noncontrast 1-1.5 mm axial sections acquired from the mid-patella to the proximal tibia, with coronal and sagittal reformats. COMPARISON: [facility], CR, XR KNEE 4+ VIEWS RIGHT, 10/24/2021, 14:08. FINDINGS: Image quality: Excellent. Bones: Patient is status post right total knee arthroplasty. No gross hardware loosening or failure is seen. There is approximately 13? internal rotation of femoral component and 33 degree internal rotation of tibial component. No fracture or dislocation. No suspicious bony lesion. Soft tissues: Moderate joint effusion is seen, no gross intra-articular loose bodies. No abnormal soft tissue calcifications. Distal quadriceps tendon and patellar tendon are intact. IMPRESSION: 1. Prior right total knee arthroplasty with component rotations as described above. No fracture or dislocation. No gross hardware loosening or failure. 2. Moderate joint effusion, no intra-articular loose bodies or abnormal soft tissue calcifications. Dictated by: Stan Wei M.D. on 03/14/2022 at 8:43 Approved by: Stan Wei M.D. on 03/14/2022 at 8:51
== END ==
PROVIDERS: PCP Internal Medicine; Referring Provider Physician Assistant Medical; Visit Provider Physician Assistant Medical
DX: M25.561 Pain in right knee (principal); M25.461 Effusion, right knee; S06.9X9S Unspecified intracranial injury with loss of consciousness of unspecified duration, sequela; F33.2 Major depressive disorder, recurrent severe without psychotic features; Z96.651 Presence of right artificial knee joint
CPT/HCPCS: 73700; 99214

== ENCOUNTER → 2022-04-22 12:35 | Outpatient (CLI) | payer MEDICARE, OTHER, SELFPAY ==
[2021-10-09 21:00] VITALS: BMI 23.2
--- NOTE | 2022-04-22 | DI.CT.S_ITS ---
PROCEDURE: CT ANGIO ABDOMEN INDICATIONS: Aneurysm of other specified arteries TECHNIQUE: After the administration of intravenous contrast, 2.5 mm thick sections acquired from the diaphragm to the symphysis. 10 mm maximum-intensity projection (MIP) reformats were then acquired. For radiation dose reduction, the following was used: automated exposure control. COMPARISON: [facility], CT, CT IVP, 08/19/2018, 12:13. FINDINGS: Image quality: Excellent. Aorta: The aorta demonstrates normal course and caliber. Scattered atheromatous calcifications are present. No stenosis or aneurysmal dilatation. Mesenteric arteries: Celiac trunk, superior and inferior mesenteric arteries appear patent. There is a thrombosed, rim calcified, saccular aneurysm off the midportion of the splenic artery which measures 1.5 cm in diameter. The mesenteric arteries are otherwise unremarkable. Right pelvic arteries: The iliac arteries are patent where visualized. Left pelvic arteries: The iliac arteries are patent where visualized. Extravascular soft tissues: Lung bases are clear. Heart size is normal. Liver is normal in size and enhancement. Gallbladder is unremarkable. Biliary system is non dilated. Pancreas enhances normally. Spleen is normal in size and enhancement. No adrenal nodules. Kidneys are normal in size and enhancement, without hydronephrosis. Non opacified bowel loops are normal in wall thickness and caliber. No free fluid or air. No retroperitoneal or mesenteric adenopathy. No ventral hernias. No suspicious bony lesions. No vertebral body compression fractures. IMPRESSION: 1. 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 2. No other arterial aneurysmal dilatation of the mesenteric arteries or aorta. Dictated by: Kandy Flores M.D. on 04/22/2022 at 15:04 Approved by: Kandy Flores M.D. on 04/22/2022 at 15:16
== END ==
PROVIDERS: PCP Internal Medicine; Referring Provider Internal Medicine; Visit Provider Internal Medicine
DX: I72.8 Aneurysm of other specified arteries (principal)
CPT/HCPCS: 74175; Q9967

== ENCOUNTER → 2022-08-26 10:34 | Outpatient (CLI) | payer MEDICARE, OTHER, SELFPAY ==
[2021-10-09 21:00] VITALS: BMI 23.2
--- NOTE | 2022-08-26 | DI.RAD.S_ITS ---
PROCEDURE: XR BONE LENGTH SCANOGRAM INDICATIONS: leg length study TECHNIQUE: A single frontal standing view of both lower extremities acquired, with measuring ruler situated between the legs. COMPARISON: [facility], CT, CT KNEE RIGHT WITHOUT CON, 03/13/2022, 14:24. [facility], CR, XR KNEE 4+ VIEWS RIGHT, 03/12/2022, 14:52. FINDINGS: Right: Total leg length is 83.8 cm. Right knee arthroplasty. Left: Total leg length is 84.1 cm. IMPRESSION: Leg length as above. Dictated by: Robby Freire [facility] Interpreted: Francois Hooper MD on 08/26/2022 at 12:54 Transcribed by: INÉS on 08/26/2022 at 12:55 Approved by: Leonel Hooper M.D. on 08/26/2022 at 16:50
== END ==
PROVIDERS: PCP Internal Medicine; Referring Provider Podiatrist; Visit Provider Podiatrist
DX: M25.561 Pain in right knee (principal); Z96.651 Presence of right artificial knee joint
CPT/HCPCS: 77073

== ENCOUNTER → 2022-11-14 15:40 | Outpatient (CLI) | payer MEDICARE, OTHER, SELFPAY ==
[2021-10-09 21:00] VITALS: BMI 23.2
--- NOTE | 2022-11-14 15:42 | DI.CT.S_ITS ---
PROCEDURE: CT ANGIO HEAD AND NECK INDICATIONS: Transient global amnesia TECHNIQUE: Pre-contrast 4.5 mm thick sections acquired from the foramen magnum to the vertex. After the administration of intravenous contrast, 1 mm thick sections acquired from the aortic arch through the [place] of [place]. Post-contrast 4.5 mm thick sections then re-acquired from the foramen magnum to the vertex. 3-dimensional wzkqbkc-rznfblguy-itztreiieg (MIP) and/or volume rendering reformats were acquired of the central intracranial vasculature and neck separately. For radiation dose reduction, the following was used: automated exposure control, adjustment of mA and/or kV according to patient size. This patient was initially injected arterially. An IV line was replaced and this patient was reinjected. COMPARISON: None. FINDINGS: Image quality: There is artifact associated with the metallic hardware. Limited by bolus timing, with venous contamination. BRAIN: CSF spaces: Ex vacuo dilatation can be seen involving the right lateral ventricle. Basal cisterns are patent. No extra-axial fluid collections. Brain: No midline shift. No intracranial bleeds or masses. Guajardo-white matter interface appears intact. Volume loss and encephalomalacia can be seen involving the anterior right temporal lobe and a mild degree within the inferior aspect of the right frontal lobe anteriorly. Skull and face: Right-sided craniotomy change is seen. Calvarium and facial bones appear intact, without suspicious lesions. Orbits appear normal. Sinuses: Sinuses and mastoids are clear. HEAD CT ANGIOGRAPHY: Anterior circulation: There is aneurysm clip seen within the region of the right internal carotid artery terminus. No recurrent aneurysm is identified. Intracranial internal carotid arteries are normal in size and flow. There is a diminutive right A1 segment, with a corresponding robust left A1 segment. This is considered to be a normal developmental variant of the [place], of typically no clinical consequence. The flow within the paired anterior cerebral arteries is otherwise normal and symmetric. The flow within the middle cerebral arteries is normal and symmetric. The anterior communicating artery is seen. No aneurysms are seen. Posterior circulation: Visualized portions of the vertebral arteries demonstrate normal caliber, and join to form a normal appearing basilar artery. Flow within the posterior cerebral arteries is normal and symmetric. No aneurysms are seen. NECK CT ANGIOGRAPHY: Carotid system: Incidental note is made of a common origin of the right brachiocephalic artery and the left common carotid artery (bovine type arch). This is considered to be a developmental variant of no clinical consequence. The origins of the common carotid arteries appear patent. The common carotid arteries demonstrate normal caliber and courses. The bifurcation regions are both widely patent. The internal carotid arteries demonstrate normal calibers and courses. Posterior circulation: The origins of the vertebral arteries both appear widely patent. The more superior extracranial portions of both vertebral arteries also demonstrate normal courses and calibers. They join to form a normal appearing basilar artery. Soft tissues: Visualized neck soft tissues demonstrate no suspicious abnormalities. Bones: No suspicious bony lesions. Visualized cervical spine appears normally aligned. Anterior cervical spine fixation hardware can be seen C3 through C5. There is a degree of vertebral body fusion seen at C5-C6. Focal degenerative change is seen at C6-C7. IMPRESSION: Prior right-sided aneurysm clip seen, without recurrent aneurysm. No new aneurysm is seen. Prior right-sided infarction, with encephalomalacia and volume loss involving the right anterior temporal lobe and the inferior anterior right frontal lobe. No significant intracranial arterial abnormality is seen. Within the arteries of the neck, no hemodynamically significant stenosis can be seen. Additional findings: Cervical spine postoperative and degenerative change Bovine type aortic branching pattern Any quantitative measurements of stenosis were performed using NASCET criteria. Dictated by: Clinton Liu M.D. on 11/14/2022 at 15:50 Approved by: Clinton Liu M.D. on 11/14/2022 at 15:56
== END ==
PROVIDERS: PCP Internal Medicine; Referring Provider Internal Medicine; Visit Provider Internal Medicine
DX: G45.4 Transient global amnesia (principal); G93.89 Other specified disorders of brain; Z86.73 Personal history of transient ischemic attack (TIA), and cerebral infarction without residual deficits
CPT/HCPCS: 70496; 70498; Q9967

== ENCOUNTER → 2023-06-23 13:37 | Outpatient (CLI) | payer MEDICARE, OTHER, SELFPAY ==
[2021-10-09 21:00] VITALS: BMI 23.2
--- NOTE | 2023-06-23 13:40 | DI.CT.S_ITS ---
PROCEDURE: CT LUMBAR SPINE WO CON INDICATIONS: Other intervertebral disc degeneration TECHNIQUE: Noncontrast 3 mm thick sections acquired from the T12 level to the sacrum. Sagittal and coronal reformats were constructed. For radiation dose reduction, the following was used: automated exposure control. COMPARISON: None. FINDINGS: Image quality: Excellent. Bones: There is normal bony alignment. No acute vertebral body compression fractures. No suspicious lytic or blastic bony lesions. No pars defects. T12-L1: Mild disc height loss. L1-L2: Mild disc height loss. L2-L3: Bilateral facet hypertrophy and ligamentum flavum hypertrophy, with broad-based disc bulge and disc osteophyte complex. L3-L4: Broad-based disc bulge, disc osteophyte complex, bilateral facet hypertrophy and ligamentum flavum hypertrophy. L4-L5: Bilateral facet hypertrophy and arthrosis. L5-S1: Bilateral facet hypertrophy and arthrosis. Moderate disc height loss. Soft tissues: No retroperitoneal masses or hematomas. Visualized aorta is normal in caliber. IMPRESSION: Multilevel degenerative disc disease, without spinal canal narrowing or significant neural foraminal narrowing. More pronounced, multilevel facet arthrosis. Dictated by: Dayday Hanson M.D. on 06/23/2023 at 16:30 Approved by: Dayday Hanson M.D. on 06/23/2023 at 16:32
== END ==
LOC: CT 13:39
PROVIDERS: PCP Internal Medicine; Referring Provider Internal Medicine; Visit Provider Internal Medicine
DX: M51.36 Other intervertebral disc degeneration, lumbar region (principal); M47.816 Spondylosis without myelopathy or radiculopathy, lumbar region; M47.817 Spondylosis without myelopathy or radiculopathy, lumbosacral region
CPT/HCPCS: 72131

== ENCOUNTER → 2023-07-02 08:52 | Outpatient (CLI) | payer MEDICARE, OTHER, SELFPAY ==
[2021-10-09 21:00] VITALS: BMI 23.2
--- NOTE | 2023-07-02 08:54 | DI.RAD.S_ITS ---
PROCEDURE: [place] BARIUM SWALLOW INDICATIONS: Dysphagia, unspecified COMPARISON: [facility], , [place] BARIUM SWALLOW W SPEECH, 09/13/2020, 13:55. FINDINGS: Function: There is pooling of barium within the vallecula and piriform sinuses. Possible posterior diverticulum is noted just below the ACDF hardware. There is normal transit of a calibrated barium tablet through the esophagus into the stomach. Morphology: Single contrast views show no esophageal strictures, extrinsic mass effects, or diverticula. Limited images of the stomach demonstrate normal appearance. IMPRESSION: Pooling of barium predominant within the piriform sinuses with a possible posterior diverticulum. Contrast material slowly passes into the esophagus. Please refer to the dedicated speech therapy swallowing evaluation report which will be independently generated. Dictated by: Jomar Tamayo M.D. on 07/02/2023 at 12:31 Approved by: Jomar Tamayo M.D. on 07/02/2023 at 12:33
--- NOTE | 2023-07-02 14:59 | ST.SWALLOW ---
Visit Care Team Role Provider Type Guillaume Cortés MD Attending Provider Non-Staff Primary Care Provider Referring Provider Specialty: Internal Medicine Address: [address] [place], [place] [address]el[address], [place], [address] Email: Modified Barium Swallow Study [employer]I [employer]TER [employer]ER Modified Barium Swallow Study Start: 07/02/23 12:42 Freq: Status: Active Protocol: Document 07/02/23 12:42 LNK (Rec: 07/02/23 14:59 [id number]) Modified Barium Swallow Study Total Time Visit Start Time 09:30 Visit Stop Time 10:15 Total Visit Minutes [address] Vazquez, ENT Reason for Referral dysphagia Setting Setting Outpatient Care Patient Information Identification Type Name,Date of Patient History This 82-yr-old female, who goes by Gabe, was seen for a Modified Barium Swallow Study at the referral of Dr. Vazquez, ENT. Pt reported an extensive medical history including 3 cervical spine surgeries in 1979, 2013, and 2018. The 1979 surgery was successful in relieving the pt 's symptoms. By 2018, a spur had grown and posterior cervical surgery was attempted at [facility]. 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 Surgical intervention was again attempted in November 2018, during which time the pt was intubated. She experienced severe swallow difficulties and aspiration pneumonia post surgery, failed 2 MBSS evaluations (silent aspiration ), and required PEG tube placement for nutrition and hydration. After a 47-day hospital stay, the pt returned home with Home Health. She received dysphagia treatment and was able to return to oral intake of soft foods and thin liquids. The pt passed an MBSS evaluation in Mar 2019, which noted deep penetration but no aspiration. Residue was noted particularly in left pyriform sinus and was benefited by head turn to left with chin tuck. The pt was cleared for oral consumption, and the PEG tube was removed 2 wks later. She has had no pneumonia since her hospital stay. pt resented today to determine current function of her oropharyngeal structures and subsequent swallow safety. Pt experiences sticking of food in her throat, which requires frequent coughing to expel. This makes her uncomfortable eating in public and raises her concerns for possible choking and/or aspiration. PMHx is also significant for depression for which she sees Dr. 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 Seizures were treated with brain surgery in 2013 including removal of right hippocampus and various areas of brain in right hemisphere. This successfully stopped the seizures. Subjective Observations Pt was seated in the fluoroscopy chair with directions and instructions described. Pt indicated she is very familiar with the assessment and agreed to proceed. Patient Positioning Position View Lat-A/P Imaging Lateral View Textures Administered Trials Presented Thin Liquid via Spoon (IDDSI 0 ),Thin Liquid via Cup (IDDSI 0 ),Thin Liquid via Straw (IDDSI 0),Easy to Chew (IDDSI 7), Regular (IDDSI 7) Barium Tablet Yes The IDDSI Framework Protocol: IDDSI.1 Oral Impairment Source: The Modified Barium Swallow Impairment Profile (MBSImP??) Lip Closure Interlabial escape; no progression to anterior lip Tongue Control During Bolus Hold Cohesive bolus between tongue to palatal seal Bolus Preparation/Mastication Slow prolonged chewing/mashing with complete re-collection Bolus Transport/Lingual Motion Brisk tongue motion Oral Residue Trace residue lining oral structures Location Tongue Initiation of Pharyngeal Swallow Bolus head at pyriforms Additional Oral Impairment Observations OME and DKS were noted to be WNL. Mastication was observed with rotary chew pattern. Good bolus formation, control and AP transition observed. Pharyngeal Impairment Source: The Modified Barium Swallow Impairment Profile (MBSImP??) Soft Palate Elevation No bolus between soft palate & pharyngeal wall Laryngeal Elevation Part.sup.move.thyroid cart/ part.approx.arytenoids to epiglot.petiole Anterior Hyoid Excursion Partial anterior movement Epiglottic Movement No inversion Laryngeal Vestibular Closure Incomplete; narrow column air/ contrast in laryngeal vestibule Pharyngeal Stripping Wave Absent Pharyngoesophageal Segment Opening Minimal distension/minimal duration; marked obstruction of flow Tongue Base Retraction Wide column of contrast/air betwn tongue base & post. pharyngeal wall Pharyngeal Residue Majority of contrast within/on pharyngeal structures Location Diffuse (>3 areas) Additional Pharyngeal Impairment Pt presented with severe Observations pharyngeal phase dysphagia secondary to structural changes re: ACDF hardware at C3-C6. The hardware appeared to displace the laryngeal and esophageal structures anteriorly with the bottom of the hardware at the PES opening. The PES was significantly restricted in opening duration and extension , allowing only small bolus amounts to enter the esophagus . The pt attempted 8+ minimally affective swallows/ each trial in her effort to pass small amounts (liquids and solids) into the esophagus . A majority of the semi-solid and solid trials pooled into the pyriform sinuses following swallow attempts, increasing the pt's aspiration risk. Water wash was minimally effective in clearing pooled contrast. There was no posterior pharyngeal wall stripping, minimal hyolaryngeal elevation and movement and no epiglottic inversion (not past horizontal plane). Weak seal of the laryngeal vestibule resulted in penetration of contrast x5 (PAS5 = penetrates larynx contacts folds, visible laryngeal residue). No aspiration observed. Once the contrast did enter the esophagus there was another anterior projection of C7-L1 that distorted the esophagus, thereby occluding the esophagus at that point. The resulting effect was pooled contrast above and below the point of occlusion. Finally, a CP bar was observed within the area proximal to the PES. As a result of the above, the pt is limited to very soft foods and liquids. She described her diet as consisting of mashed potatoes and potato chips. She stated it seems she cnn eat primarily carbs and Coke. A/P View Textures Administered Trials Presented Thin Liquid via Spoon (IDDSI 0 ) The IDDSI Framework Protocol: IDDSI.1 A/P View Observations Pharyngeal Contraction Unilateral bulging Esophageal Clearance Upright Position Esophageal retention w/ regtrograde flow below pharyngoesoph segment Esophageal Function Slowed Clearing,Narrowing Additional A-P Observations In the AP view the right pyriform was full of contrast, while the left pyriform was empty. With a thin liquid trial, the contrast was observed to flow with a right side bulge. When attempting to swallow an 11mm barium tablet, initially the pt choked on the tablet. For a second attempt at swallowing the tablet, she turned her head to the right side and the tablet passed into her esophagus. Pt's esophagus appeared to empty slowly with narrowing stasis noted. The lower esophagus appeared to be wide near the diaphragm. A barium tablet did pass into the stomach at the GES. Clinical Impressions Dysphagia Type Pharyngeal,Esophageal Findings PLEASE READ THE ORAL, PHARYNGEAL AND ESOPHAGEAL PHASE SUMMARIES FOR SIFGNIFICANT DETAILS Pt presented with severe pharyngel phase dysphagia secondary to structural changes related the cervical hardware position/placement relative to the larynx and esophagus/PES. 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 Patient Appropriate for Therapy No Recommendations
== END ==
PROVIDERS: PCP Internal Medicine; Referring Provider Internal Medicine; Visit Provider Internal Medicine
DX: R13.10 Dysphagia, unspecified (principal)
CPT/HCPCS: 74230

== ENCOUNTER → 2024-07-26 10:03 | Outpatient (CLI) | payer MEDICARE, OTHER, SELFPAY ==
[2021-10-09 21:00] VITALS: BMI 23.2
--- NOTE | 2024-07-26 10:05 | DI.CT.S_ITS ---
PROCEDURE: CT THORACIC SPINE W CON INDICATIONS: MALIGNANT NEOPLASM UPPER OUTER RT BREAST TECHNIQUE: After the administration of intravenous Isovue contrast, 3 mm thick sections acquired through the levels of interest. Sagittal and coronal reformats were then constructed. For radiation dose reduction, the following was used: automated exposure control. COMPARISON: [facility], CT, CT LUMBAR SPINE WO CON, 06/23/2023, 13:48. [facility], CT, CT ANGIO ABDOMEN, 04/22/2022, 13:21. [facility], [place], [place] PET CT FUSION SKULL 2 THIGH, 06/16/2024, 11:19. FINDINGS: Image quality: Excellent. Bones: Lower cervical spine postoperative hardware is partially seen. In this patient with this given history, scrutiny is given to T9 and T11 levels, at the sites of the recent PET abnormality. At these sites, no definite lytic or blastic lesions are seen. No fractures are seen. Minimal levoconvex thoracic scoliotic curvature can be seen. Accentuated thoracic kyphosis is seen. Generalized, age-appropriate bony degenerative changes are seen. Soft tissues: No significant pulmonary abnormality is seen. No enlarged mediastinal lymph nodes are seen. The visualized organs of the upper abdomen demonstrate no significant abnormality, although nonenhancing cysts of the left kidney can be seen. 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 No significant abnormal soft tissue enhancement is seen. IMPRESSION: On the prior recent PET-CT, there is clearly increased radiotracer uptake within the T9 and T11 vertebral bodies. No CT correlate can be seen. These vertebral bodies demonstrate no significant abnormality. No appt generalized degenerative changes are seen. No fractures are seen. 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 on 07/26/2024 at 11:26 Approved by: Clinton Liu M.D. on 07/26/2024 at 11:32
[2024-07-26 10:32] LABS: Estimated Glomerular Filt Rate > 60 mL/min (>60)
== END ==
PROVIDERS: Radiology Diagnostic Radiology; Referring Provider Hospitalist; Visit Provider Hospitalist
DX: C50.411 Malignant neoplasm of upper-outer quadrant of right female breast (principal); I72.8 Aneurysm of other specified arteries; N28.1 Cyst of kidney, acquired; G89.29 Other chronic pain; Z17.1 Estrogen receptor negative status [ER-]; Z98.1 Arthrodesis status
CPT/HCPCS: 36415; 72129; 82565; Q9967